=== PATIENT | male | born 1960 | race Hispanic/Latino ===

== ENCOUNTER 2016-09-14 01:27 | Inpatient (IN) | payer OTHER ==
--- NOTE | 2016-09-14 01:39 | ED PDOC ---
Arrival/HPI - General Time Seen by Provider: 09/14/16 01:31 Historian: Patient - History of Present Illness Narrative History of Present Illness (Text): 09/14/16 01:37 Ovidio Parker is a 56 year old male, whose past medical history includes pulmonary embolus, hypertension, alcohol abuse, methadone use, and thoracic aortic aneurysm, who presents to the Emergency department complaining of chest pain. Patient states he has been experiencing right-sided chest pain and shortness of breath, which has progressively worsened since yesterday. Patient states he has been feeling ill for the past week and has been unable to take his medications. Patient states he did not take his Coumadin for a few days but reports his last dose was earlier tonight. Patient denies any fever, chills, nausea, vomiting, diarrhea, urinary symptoms, back pain, neck pain, headache, dizziness, or any other complaints. Symptom Onset: Gradual Symptom Course: Unchanged Activities at Onset: Rest, Light Context: Home Past Medical History - Provider Review Nursing Documentation Reviewed: Yes - Past History Past History: No Previous - Infectious Disease Hx of Infectious Diseases: None - Tetanus Immunization Tetanus Immunization: Unknown - Cardiac Hx Cardiac Disorders: Yes Hx Hypertension: Yes - Pulmonary Hx Respiratory Disorders: No - Neurological Hx Neurological Disorder: No - HEENT Hx HEENT Disorder: No - Renal Hx Renal Disorder: No - Endocrine/Metabolic Hx Endocrine Disorders: No - Hematological/Oncological Hx Blood Disorders: Yes Other/Comment: PE, DVT - Integumentary Hx Dermatological Disorder: No - Musculoskeletal/Rheumatological Hx Falls: No Hx Unsteady Gait: Yes (b/l acl tears, amb with cane) - Gastrointestinal Hx Gastrointestinal Disorders: No - Genitourinary/Gynecological Hx Genitourinary Disorders: No - Psychiatric Hx Psychophysiologic Disorder: Yes Hx Depression: Yes Hx Substance Use: (been in methadone program for 5 years) - Past Surgical History Past Surgical History: No Previous - Surgical History Other/Comment: tonsillectomy, adenoidectomy - Suicidal Assessment Feels Threatened In Home Enviroment: No Family/Social History - Physician Review Nursing Documentation Reviewed: Yes Family/Social History: No Known Family HX Smoking Status: Never Smoked Hx Alcohol Use: Yes (pt states he has not drank alcohol in years) Hx Substance Use: (been in methadone program for 5 years) Hx Substance Use Treatment: Yes (Methadone program) Allergies/Home Meds Allergies/Adverse Reactions: Allergies No Known Allergies Allergy (Verified 09/14/16 01:45) Home Medications: Home Meds Medication Instructions Recorded Confirmed Bupropion Hydrochloride 300 mg PO DAILY 06/06/12 02/26/16 [Wellbutrin Xl] Methadone Hydrochloride [Methadone 145 mg PO DAILY 06/06/12 02/26/16 HCl Concentrate] Metoprolol Tartrate [Lopressor] 25 mg PO BID 02/26/16 02/26/16 Warfarin [Coumadin] 10 mg PO DAILY 02/26/16 02/26/16 Review of Systems - Physician Review All systems were reviewed & negative as marked: Yes - Review of Systems Constitutional: Normal. absent: Fevers Eyes: Normal ENT: Normal Respiratory: SOB Cardiovascular: Chest Pain Gastrointestinal: Normal. absent: Abdominal Pain, Diarrhea, Nausea, Vomiting Genitourinary Male: Normal. absent: Dysuria, Frequency, Hematuria, Urinary Output Changes Musculoskeletal: Normal. absent: Back Pain, Neck Pain Skin: Normal. absent: Rash Neurological: Normal. absent: Headache, Dizziness Endocrine: Normal Hemo/Lymphatic: Normal Psychiatric: Normal Physical Exam Vital Signs Reviewed: Yes Vital Signs Temp Pulse Resp BP Pulse Ox 09/14/16 03:27 77 18 123/70 96 09/14/16 02:25 22 96 09/14/16 01:27 98.5 F 85 15 116/71 100 Temperature: Afebrile Blood Pressure: Normal Pulse: Regular Respiratory Rate: Normal Appearance: Positive for: Well-Appearing, Non-Toxic, Comfortable Pain Distress: None Mental Status: Positive for: Alert and Oriented X 3 - Systems Exam Head: Present: Atraumatic, Normocephalic Pupils: Present: PERRL Extroacular Muscles: Present: EOMI Conjunctiva: Present: Normal Mouth: Present: Moist Mucous Membranes Neck: Present: Normal Range of Motion Respiratory/Chest: Present: Clear to Auscultation, Good Air Exchange. No: Respiratory Distress, Accessory Muscle Use Cardiovascular: Present: Regular Rate and Rhythm, Normal S1, S2. No: Murmurs Abdomen: Present: Normal Bowel Sounds. No: Tenderness, Distention, Peritoneal Signs Back: Present: Normal Inspection Upper Extremity: Present: Normal Inspection. No: Cyanosis, Edema Lower Extremity: Present: Normal Inspection. No: Edema Neurological: Present: GCS=15, CN II-XII Intact, Speech Normal Skin: Present: Warm, Dry, Normal Color. No: Rashes Psychiatric: Present: Alert, Oriented x 3, Normal Insight, Normal Concentration Medical Decision Making ED Course and Treatment: 09/14/16 01:37 Impression: 56 year old male complaining of chest pain and shortness of breath. Differential Diagnosis include but are not limited to: PE vs. pneumonia vs. CHF vs. ACS Plan: -- CTA Chest -- EKG -- Chest X-ray -- Labs, cardiac enzymes, BNP -- Reassess and disposition Prior Visits: Notes and results from previous visits were reviewed. Progress Notes: Reviewed EKG, NSR at [address]-segment elevations or depressions, no T-wave inversions, normal intervals. 09/14/16 03:38 Reviewed Chest X-ray, shows no acute processes. 09/14/16 03:52 Reviewed CTA Chest, shows: 1. Evaluation of the pulmonary arterial circuit demonstrates filling defects consistent with multifocal pulmonary emboli, example right main pulmonary artery, right descending pulmonary artery, as well as lobar, segmental, and/or subsegmental vessels in all right pulmonary lobes. 2. Juxtapleural groundglass opacity and consolidation in bilateral lower lobes noted. Consider infarct, atelectasis, pneumonia. 09/14/16 04:[address] Romero, who requests pt go to hospitalist service. 09/14/16 04:[address] Castro, who is aware and agrees with plan. Accepts pt in to hospitalist service. Pt will be admitted to Telemetry for PE and pneumonia. residential manager notified. - Critical Care Critical Care Minutes: 30 minutes - Lab Interpretations Lab Results: 09/14/16 01:35 09/14/16 01:35 Lab Results 09/14/16 01:35: WBC 15.4 H D, RBC 4.15, Hgb 12.1 L, Hct 36.5 L, MCV 88.0, MCH 29.2, MCHC 33.2, RDW 15.3 H, Plt Count 235, MPV 9.9 09/14/16 01:35: Sodium 136, Potassium 4.1, Chloride 97 L, Carbon Dioxide 30, Anion Gap 13, BUN 15, Creatinine 1.0, Est GFR ( Amer) > 60, Est GFR (Non- Af Amer) > 60, Random Glucose 107, Calcium 9.0, Total Bilirubin 0.6, AST 38, ALT 25, Alkaline Phosphatase 65, Lactate Dehydrogenase 351, Total Creatine Kinase 63, Troponin I < 0.01, NT-Pro-B Natriuret Pep 261, Total Protein 7.6, Albumin 4.3, Globulin 3.3, Albumin/Globulin Ratio 1.3 09/14/16 01:35: PT 11.6, INR 1.07, APTT 34.0 H I have reviewed the lab results: Yes - RAD Interpretation Narrative RAD Interpretations (Text): Chest X-ray shows no acute processes. CTA Chest shows: Pulmonary arteries: Evaluation of the pulmonary arterial circuit demonstrates filling defects consistent with multifocal pulmonary emboli, example right main pulmonary artery , right descending pulmonary artery, as well as lobar, segmental, and/or subsegmental vessels in all right pulmonary lobes. Aorta: No acute findings. No thoracic aortic aneurysm. Lungs: Juxtapleural groundglass opacity and consolidation in bilateral lower lobes noted. Pleural space: No acute findings. No significant effusion. No pneumothorax. Heart: No acute findings. No cardiomegaly. No significant pericardial effusion. No evidence of RV dysfunction. Bones/joints: No acute fracture. No dislocation. Soft tissues: No acute findings. Lymph nodes: No acute findings. No enlarged lymph nodes. IMPRESSION: 1. Evaluation of the pulmonary arterial circuit demonstrates filling defects consistent with multifocal pulmonary emboli, example right main pulmonary artery, right descending pulmonary artery, as well as lobar, segmental, and/or subsegmental vessels in all right pulmonary lobes. 2. Juxtapleural groundglass opacity and consolidation in bilateral lower lobes noted. Consider infarct, atelectasis, pneumonia. Radiology Orders: 09/14/16 CHEST PORTABLE [RAD] Stat 09/14/16 01:41 ANGIO CHEST PE PROTOCOL [CT] Stat Career Development Specialist: ED Physician, Radiologist - EKG Interpretation Interpreted by ED Physician: Yes Type: 12 lead EKG - Medication Orders Current Medication Orders: Ceftriaxone Sodium (Rocephin 1 Gram Ivpb) 1 gm in 100 mls @ 200 mls/hr IV ONCE STA PRN Reason: Protocol Stop: 09/14/16 04:56 Azithromycin (Zithromax 500mg In Ns) 500 mg in 250 mls @ 166.667 mls/hr IV STAT STA PRN Reason: Protocol Stop: 09/14/16 05:59 Discontinued Medications Heparin Sodium (Porcine) (Heparin) 8,000 units IV ONCE STA PRN Reason: Protocol Stop: 09/14/16 04:32 Iodixanol (Visipaque 320 Mg/Ml 100 Ml) Confirm Administered Dose 100 ml IV .STK- MED ONE Stop: 09/14/16 02:57 - Scribe Statement The provider has reviewed the documentation as recorded by the Scribramírez Campuzano All medical record entries made by the Shahzadibramírez were at my direction and personally dictated by me. I have reviewed the chart and agree that the record accurately reflects my personal performance of the history, physical exam, medical decision making, and the department course for this patient. I have also personally directed, reviewed, and agree with the discharge instructions and disposition. Disposition/Present on Arrival - Present on Arrival Any Indicators Present on Arrival: No History of DVT/PE: Yes History of Uncontrolled Diabetes: No Urinary Catheter: No History of Decub. Ulcer: No History Surgical Site Infection Following: None - Disposition Have Diagnosis and Disposition been Completed?: Yes Diagnosis: Pulmonary embolism, Pneumonia Disposition: HOSPITALIZED Disposition Time: 04:43 Patient Plan: Admission Condition: STABLE
[2016-09-14 01:55] LABS: HEMATOCRIT 36.5 % (42.0-52.0); MEAN CORPUSCULAR HEMOGLOBIN 29.2 pg (25.0-35.0); MEAN CORPUSCULAR HGB CONC 33.2 g/dl (31.0-37.0); MEAN PLATELET VOLUME 9.9 fl (7.0-11.0); RED CELL DISTRIBUTION WIDTH 15.3 % (11.5-14.5); WHITE BLOOD COUNT 15.4 10^3/ul (4.5-11.0)
[2016-09-14 02:00] LABS: ALB/GLOB RATIO 1.3 (1.1-1.8); ALKALINE PHOSPHATASE 65 U/L (38-133); ALT/SGPT 25 U/L (7-56); AST/SGOT 38 U/L (15-59); BILIRUBIN,TOTAL 0.6 mg/dL (0.2-1.3); BLOOD UREA NITROGEN 15 mg/dL (7-21); CARBON DIOXIDE 30 mmol/L (21-33); CHLORIDE 97 mmol/L (98-107); GFR AFRICAN-AMERICAN > 60; GLUCOSE,RANDOM 107 mg/dL (70-110); INR 1.07 (0.93-1.08); POTASSIUM 4.1 mmol/L (3.6-5.0); SODIUM 136 mmol/L (132-148); TOTAL PROTEIN 7.6 g/dL (5.8-8.3)
[2016-09-14 02:24] LABS: TROPONIN I < 0.01 ng/mL
[2016-09-14] MEDS ORDERED: Iodixanol 320 MG/ML 100 ML BOTTLE IV ONE (02:56)
[2016-09-14] MEDS ORDERED: cefTRIAXone 1 gm 1 GM/100 ML BAG IV STA (04:27)
[2016-09-14] MEDS ORDERED: Azithromycin 500MG/NS 250ml 500 MG/250 ML BAG IV STA (04:30)
[2016-09-14] MEDS ORDERED: Heparin25000 units/250ml 1/2NS 25,000 UNITS/250 ML BAG IV PRN ×2 (04:52→05:33)
[2016-09-14] MEDS: Heparin25000 units/250ml 1/2NS 25,000 UNITS/250 ML BAG IV PRN ×2 (05:43→20:16)
--- NOTE | 2016-09-14 06:07 | CP.PCM.HP ---
History of Present Illness - History of Present Illness History of Present Illness: This 56 year old white male was admitted for right sided chest pain, sob, little nausea which all began yesterday.\ Chest pain was moderate , more on deep breathing, no radiation, shortness of breathe was non exertional ,no vomiting, no seating, palpitation , back pain, headache, dizziness, fever, chills.Has history of recurrent pulmonary embolisms.States that he took his 6 mg a day dose of coumadin for past 2 days but did not take it 5-6 days immediately preceding that. Had no other complaints. ALLERGY:No known drug allergies. PMH:Multiple times pulmonary embolism. HTN. Methadone dependence. Depression. History of thoracic aortic aneurism. Tobacco abuse history. Alcohol abuse history. History of cocaine and opiates use. PAST SURGICAL HISTORY:Denies. FH:Rosita grand father had lung cancer. SOCIAL HISTORY:Alcohol abuse 20 years ago-moderate amount. Has been on methadone for 6 years.Takes 140 mg methadone per day. Used pain killers in the past . Used cocaine year ago. HOME MEDICATIONS: Home Meds Medication Instructions Recorded Confirmed Bupropion Hydrochloride 300 mg PO DAILY 06/06/12 02/26/16 [Wellbutrin Xl] Methadone Hydrochloride [Methadone 145 mg PO DAILY 06/06/12 02/26/16 HCl Concentrate] Metoprolol Tartrate [Lopressor] 25 mg PO BID 02/26/16 02/26/16 Warfarin [Coumadin] 10 mg PO DAILY 02/26/16 02/26/16 PMD: ROS: Right ear deafness,right mastoid surgery x2 at age 7-8 year. Tonsillectomy. Adenoidectomy. Goes to [facility] in [facility]. Present on Admission - Present on Admission Any Indicators Present on Admission: Yes History of DVT/PE: Yes History of Uncontrolled Diabetes: No Urinary Catheter: No Decubitus Ulcer Present: No History Surgical Site Infection Following: None Review of Systems - Review of Systems All systems: reviewed and no additional remarkable complaints except (As mentioned in HPI.) Past Patient History - Infectious Disease Hx of Infectious Diseases: None - Tetanus Immunizations Tetanus Immunization: Unknown - Past Medical History & Family History Past Medical History?: Yes Pertinent Family History: See HPI. - Past Social History Smoking Status: Never Smoked Alcohol: Other (See HPI.) Drugs: Other (see HPI.) - CARDIAC Hx Cardiac Disorders: Yes Hx Hypertension: Yes - PULMONARY Hx Respiratory Disorders: Yes Other/Comment: Pulmonary embolism -multiple times. - NEUROLOGICAL Hx Neurological Disorder: No - HEENT Hx HEENT Problems: No - RENAL Hx Chronic Kidney Disease: No - ENDOCRINE/METABOLIC Hx Endocrine Disorders: No - HEMATOLOGICAL/ONCOLOGICAL Hx Blood Disorders: Yes Other/Comment: PE, DVT - INTEGUMENTARY Hx Dermatological Problems: No - MUSCULOSKELETAL/RHEUMATOLOGICAL Hx Falls: No Hx Unsteady Gait: Yes (b/l acl tears, amb with cane) - GASTROINTESTINAL Hx Gastrointestinal Disorders: No - GENITOURINARY/GYNECOLOGICAL Hx Genitourinary Disorders: No - PSYCHIATRIC Hx Psychophysiologic Disorder: Yes Hx Depression: Yes Hx Substance Use: (been in methadone program for 5 years) - SURGICAL HISTORY Other/Comment: tonsillectomy, adenoidectomy - ANESTHESIA Hx Anesthesia: Yes Hx Anesthesia Reactions: No Hx Malignant Hyperthermia: No Meds Allergies/Adverse Reactions: Allergies Allergy/AdvReac Type Severity Reaction Status Date / Time No Known Allergies Allergy Verified 09/14/16 01:45 Physical Exam - Constitutional Appears: Well, No Acute Distress - Head Exam Head Exam: ATRAUMATIC, NORMAL INSPECTION, NORMOCEPHALIC - Eye Exam Eye Exam: Normal appearance - ENT Exam ENT Exam: Mucous Membranes Moist, Normal External Ear Exam - Neck Exam Neck exam: Positive for: Normal Inspection. Negative for: Tenderness, Thyromegaly - Respiratory Exam Respiratory Exam: Clear to Auscultation Bilateral, NORMAL BREATHING PATTERN. absent: Accessory Muscle Use, Chest Wall Tenderness, Rales, Rhonchi, Wheezes, Respiratory Distress, Stridor - Cardiovascular Exam Cardiovascular Exam: REGULAR RHYTHM. absent: JVD - GI/Abdominal Exam GI & Abdominal Exam: Normal Bowel Sounds, Soft. absent: Tenderness - Rectal Exam Rectal Exam: Deferred - Extremities Exam Extremities exam: Positive for: pedal edema. Negative for: tenderness Additional comments: Right leg edema. - Back Exam Back exam: NORMAL INSPECTION - Neurological Exam Neurological exam: Alert, CN II-XII Intact, Oriented x3 - Psychiatric Exam Psychiatric exam: Normal Affect, Normal Mood - Skin Skin Exam: Normal Color, Warm Results - Vital Signs Recent Vital Signs: Last Vital Signs Temp 98.5 F 09/14/16 01:27 Pulse 77 09/14/16 03:27 Resp 18 09/14/16 03:27 BP 123/70 06/05/17 03:27 Pulse Ox 96 09/14/16 03:27 - Labs Result Diagrams: 09/14/16 11:50 09/14/16 07:25 - EKG Data EKG Interpreted by: Myself - Impressions Impression: NSR - Imaging and Cardiology CT scan - chest Status: Report reviewed by me (Multiple pe right side.) Assessment & Plan - Assessment and Plan (Free Text) Assessment: Pleuritic chest pain. Dyspnea. Right sided pulmonary embolism. HTN. Depression. Methadone dependence. Leukocytosis. Borderline anemia. Right ear deafness. Obesity. Plan: Admitted to telemetry. Heart health ,low sodium diet. IV heaprin. Daily coag profile. CBC, CMP in AM. Continue home medications. Oxygen. GI prophylaxis. Analgesic. Antipyretic prn. - Date & Time Date: 09/14/16 Time: 16:35
--- NOTE | 2016-09-14 06:28 | CP.PCM.HP ---
History of Present Illness - History of Present Illness History of Present Illness: draft Past Patient History - Infectious Disease Hx of Infectious Diseases: None - Tetanus Immunizations Tetanus Immunization: Unknown - Past Social History Smoking Status: Never Smoked - CARDIAC Hx Cardiac Disorders: Yes Hx Hypertension: Yes - PULMONARY Hx Respiratory Disorders: No - NEUROLOGICAL Hx Neurological Disorder: No - HEENT Hx HEENT Problems: No - RENAL Hx Chronic Kidney Disease: No - ENDOCRINE/METABOLIC Hx Endocrine Disorders: No - HEMATOLOGICAL/ONCOLOGICAL Hx Blood Disorders: Yes Other/Comment: PE, DVT - INTEGUMENTARY Hx Dermatological Problems: No - MUSCULOSKELETAL/RHEUMATOLOGICAL Hx Falls: No Hx Unsteady Gait: Yes (b/l acl tears, amb with cane) - GASTROINTESTINAL Hx Gastrointestinal Disorders: No - GENITOURINARY/GYNECOLOGICAL Hx Genitourinary Disorders: No - PSYCHIATRIC Hx Psychophysiologic Disorder: Yes Hx Depression: Yes Hx Substance Use: (been in methadone program for 5 years) - SURGICAL HISTORY Other/Comment: tonsillectomy, adenoidectomy - ANESTHESIA Hx Anesthesia: Yes Hx Anesthesia Reactions: No Hx Malignant Hyperthermia: No Meds Allergies/Adverse Reactions: Allergies Allergy/AdvReac Type Severity Reaction Status Date / Time No Known Allergies Allergy Verified 09/14/16 01:45 Results - Vital Signs Recent Vital Signs: Last Vital Signs Temp 98.5 F 09/14/16 01:27 Pulse 77 09/14/16 03:27 Resp 18 09/14/16 03:27 BP 123/70 09/14/16 03:27 Pulse Ox 96 09/14/16 03:27 - Labs Result Diagrams: 09/14/16 01:35 09/14/16 01:35
[2016-09-14 08:04] LABS: ALB/GLOB RATIO 1.2 (1.1-1.8); ALKALINE PHOSPHATASE 62 U/L (38-133); ALT/SGPT 29 U/L (7-56); AST/SGOT 26 U/L (15-59); BILIRUBIN,TOTAL 0.7 mg/dL (0.2-1.3); BLOOD UREA NITROGEN 16 mg/dL (7-21); CALCIUM 8.8 mg/dL (8.4-10.5); CARBON DIOXIDE 28 mmol/L (21-33); CHLORIDE 99 mmol/L (98-107); GFR AFRICAN-AMERICAN > 60; GLUCOSE,RANDOM 100 mg/dL (70-110); POTASSIUM 4.8 mmol/L (3.6-5.0); SODIUM 137 mmol/L (132-148); TOTAL PROTEIN 7.5 g/dL (5.8-8.3)
[2016-09-14 08:07] LABS: TROPONIN I < 0.01 ng/mL
--- NOTE | 2016-09-14 08:25 | CT ---
PROCEDURE: CT Chest with contrast (Pulmonary Angiogram) HISTORY: sob COMPARISON: None available. TECHNIQUE: Axial computed tomography images were obtained of the chest in the pulmonary arterial phase of enhancement. Coronal and sagittal reformatted images were created and reviewed. Intravenous contrast dose: 100 mL Visipaque Radiation dose: Total exam DLP = 690.93 mGy-cm. This CT exam was performed using one or more of the following dose reduction techniques: Automated exposure control, adjustment of the mA and/or kV according to patient size, and/or use of iterative reconstruction technique. FINDINGS: PULMONARY ARTERIES: There are linear filling defects in the right distal pulmonary artery and upper lobe artery, and large filling defects in the middle and lower lobe segment and subset pulmonary arteries. AORTA: There is aneurysm of the ascending aorta measuring 4.8 x 5.0 cm. LUNGS: There is a 4 mm calcified nodule in the right middle lobe. There is multifocal airspace disease in both lower lobes. PLEURAL SPACES: Unremarkable. No effusion or pneumothorax. HEART: Unremarkable. No cardiomegaly. No significant pericardial effusion. LYMPH NODES: Subcentimeter mediastinal lymph nodes are likely reactive in etiology. BONES, CHEST WALL: Diffuse bone demineralization and multilevel degenerative disc disease. No fracture or destructive lesion OTHER FINDINGS: Unremarkable. IMPRESSION: 1. Acute pulmonary embolism in the right distal main pulmonary artery, right upper lobe artery, middle and lower lobe segmental and subsegmental branches. 2. Multifocal airspace disease in both lower lobes may represent atelectasis or pneumonia. Pulmonary infarction is also a consideration in the right lower lobe. A preliminary report was provided by [facility].
--- NOTE | 2016-09-14 09:12 | RAD ---
HISTORY: Shortness of breath COMPARISON: No prior. FINDINGS: LUNGS: The lungs are clear. PLEURA: No significant pleural effusion identified, no pneumothorax apparent. CARDIOVASCULAR: Normal. OSSEOUS STRUCTURES: No significant abnormalities. VISUALIZED UPPER ABDOMEN: Normal. OTHER FINDINGS: None. IMPRESSION: No active pulmonary disease.
[2016-09-14 09:17] VITALS: BMI 31.2
[2016-09-14] MEDS: cefTRIAXone 1 gm 1 GM/100 ML BAG IVPB SCH (09:17)
[2016-09-14] MEDS: Azithromycin 250 MG in Sodium Chloride 0.9% 250 ML IVPB SCH (09:17)
[2016-09-14 12:05] LABS: ADD MANUAL DIFF? NO
[2016-09-14 12:11] LABS: BASO # 0.03 K/mm3 (0.0-2.0); BASO % 0.2 % (0.0-3.0); EOS # 0.1 (0.0-0.7); EOS % 0.5 % (1.5-5.0); GRAN # 8.07 (1.4-6.5); GRAN % 61.2 % (50.0-68.0); LYMPH # 3.4 (1.2-3.4); LYMPH % 25.5 % (22.0-35.0); MEAN CORPUSCULAR HEMOGLOBIN 28.8 pg (25.0-35.0); MEAN PLATELET VOLUME 10.1 fl (7.0-11.0); MONO # 1.7 (0.1-0.6); MONO % 12.6 % (1.0-6.0); PLATELET COUNT 190 10^3/uL (120.0-450.0); RED CELL DISTRIBUTION WIDTH 15.5 % (11.5-14.5); WHITE BLOOD COUNT 13.2 10^3/ul (4.5-11.0)
[2016-09-14 12:35] LABS: TROPONIN I 0.01 ng/mL
[2016-09-14 12:41] LABS: INR 1.19 (0.93-1.08)
[2016-09-14 13:13] LABS: PARTIAL THROMBOPLASTIN TIME > 180.0 Seconds (23.7-30.8)
--- NOTE | 2016-09-14 13:16 | CON ---
DATE: 09/14/2016 REASON FOR CONSULTATION: Acute pulmonary embolism. HISTORY OF PRESENT ILLNESS: The patient is a 56-year-old male who has history of ETOH abuse and is o n methadone, has a history of pulmonary embolus diagnosed in February of last year and he was placed on Coumadin therapy at that time. The patient presents because of right-sided chest pain as well as shortness of breath. The patient has been experiencing abdominal pain, nausea, and vomiting a few da ys prior to that. The patient was found to have an acute pulmonary embolism in the right distal main pulmonary artery, right upper lobe, middle and lower lobe segmental and subsegmental branches. Numb er 2, multifocal airspace disease in both lower lobes, may represent atelectasis or pneumonia, pulmon tommy infarction ____ in the right lower lobe. The above findings were found on a CT angio of the [facility] t. The patient denies any leg pain at this time or leg swelling. He did report right thigh pain ear lier. MEDICATIONS: Home medications include Coumadin according to the patient, but he says a variable dose . PAST MEDICAL HISTORY: History of aortic aneurysm that the patient was told measured less than 5 cm, but no cardiac catheterization was performed. PHYSICAL EXAMINATION: GENERAL: The patient is a middle-aged male who does not appear to be in any distress. VITAL SIGNS: Blood pressure 105/71, heart rate 70, temperature 98, respiration 20. HEENT: Normocephalic. NECK: No JVD. CHEST: Diminished breath sounds over the right base. HEART: S1, S2 regular. ABDOMEN: Soft. EXTREMITIES: No edema, no calf tenderness. LABORATORIES: Hemoglobin and hematocrit 12.1 and 36.5. White count and platelet count are 15.4 and 235,000. INR is 1.07. PTT 34. Today's SMA-7 within normal limit. Two sets of troponins are negati ve. EKG revealed normal sinus rhythm. ASSESSMENT: 1. Acute pulmonary embolism. 2. Right lower lobe pneumonia versus infarction. 3. History of ethyl alcohol abuse. RECOMMENDATIONS: Continue current intravenous heparin in a therapeutic regimen for pulmonary embolis m. Continue IV Zithromax at 250 mg daily. Continue Rocephin at 1 gram daily. Obtain a portable ech ocardiograph study as well as venous Doppler of the lower extremity. Obtain urine for drug screen an d obtain workup for hypercoagulable state including lupus anticoagulant, antiphospholipid antibody, p rotein C and S deficiency as well as factor V deficiency. Cosmo Palencia MD cc: [id number] TT: 09/14/2016 13:15:47 Confirmation # [id number] Dictation # [id number]
--- NOTE | 2016-09-14 14:49 | CARD ---
APPROVED REPORT EKG Measurement Heart [id number] ME 194P [id number] <Conclusion> Normal sinus rhythm Normal ECG
--- NOTE | 2016-09-14 16:35 | CARD ---
APPROVED REPORT EXAM: Two-dimensional and M-mode echocardiogram with Doppler and color Doppler. INDICATION Pulmonary Embolism 2D DIMENSIONS Left Atrium (2D)4.1 (1.6-4.0cm)IVSd1.4 (0.7-1.1cm) LVDd4.7 (3.9-5.9cm)PWd1.3 (0.7-1.1cm) LVDs3.3 (2.5-4.0cm)FS (%) 29.2 % LVEF (%)56.1 (>50%) M-Mode DIMENSIONS Aortic Root4.00 (2.2-3.7cm)Aortic Cusp Exc.2.20 (1.5-2.0cm) Aortic Valve AoV Peak Boqlprqj988.0cm/Evelin Peak GR.12mmHg Mitral Valve E/A ratio0.0 TDI E/Lateral E'0.0E/Medial E'0.0 Tricuspid Valve TR Peak [id number] [id number] Peak Gr.17mmHg [id number] LEFT VENTRICLE The left ventricle is normal size. There is mild concentric left ventricular hypertrophy. The left ventricular ejection fraction is within the normal range. Mild septal hypokinesis Transmitral Doppler flow pattern is Grade I-abnormal relaxation pattern. RIGHT VENTRICLE The right ventricle is normal size. There is normal right ventricular wall thickness. RV Systolic function is mildly reduced. ATRIA The left atrium is borderline dilated. The right atrium size is normal. AORTIC VALVE The aortic valve is normal in structure. There is mild aortic regurgitation. TRICUSPID VALVE There is no pulmonary hypertension. GREAT VESSELS The aortic root is mildly to moderately enlarged. <Conclusion> The left ventricle is normal size. There is mild concentric left ventricular hypertrophy. The left ventricular ejection fraction is within the normal range. Mild septal hypokinesis Transmitral Doppler flow pattern is Grade I-abnormal relaxation pattern. RV Systolic function is mildly reduced. The aortic root is mildly to moderately enlarged. There is mild aortic regurgitation. There is no pulmonary hypertension.
--- NOTE | 2016-09-14 18:46 | US ---
HISTORY: Leg pain and swelling. Evaluate for DVT PHYSICIAN(S): Dipak Rodriguez MD. TECHNIQUE: Duplex sonography and color-flow Doppler with graded compression were used to evaluate the deep venous systems of both lower extremities. FINDINGS: Hypoechoic occlusive acute thrombus is noted in the right popliteal vein and visualized right tibial veins. A right femoral vein and right common femoral vein are patent and compressible. There is no sonographic evidence for deep venous thrombosis the visualized segments of left lower extremity. IMPRESSION: Acute occlusive thrombus in the right popliteal and tibial veins.
--- NOTE | 2016-09-14 20:08 | CP.PCM.CON ---
History of Present Illness - History of Present Illness History of Present Illness: Hematology Consult Referred by Dr. Arvizu for h/o recurrent PE HPI- Mr Parker is 56 y/o M with h/o HTN, depression, substance abuse (on Methadone now). 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 Review of his records did not show any identifiable cause of any hypercoagulable work up in past. Also, he had issues with maintaining his INR in therapeutic range. Denies any bleeding while on coumadin. He was admitted now with pleuritic chest pain. CT Chest again showed multiple PE. He was started on IV heparin. He still has chest pain which is overall stable right now. He is saturating 98% on 2 L oxygen by nasal canula. His vitals have been stable. Denies abdominal pain or altered bowel movements, blood in stools or urinary complaints. His appetite is good and denies any weight loss. Denies fever, chills. Family and Social history reviewed. Review of Systems - Review of Systems All systems: reviewed and no additional remarkable complaints except Review of Systems: as in HPI Past Patient History - Infectious Disease Hx of Infectious Diseases: None - Tetanus Immunizations Tetanus Immunization: Unknown - Past Medical History & Family History Past Medical History?: Yes - Past Social History Smoking Status: Never Smoked Alcohol: Other (See HPI.) Drugs: Other (see HPI.) - CARDIAC Hx Cardiac Disorders: Yes Hx Hypertension: Yes - PULMONARY Hx Respiratory Disorders: Yes Other/Comment: Pulmonary embolism -multiple times. - NEUROLOGICAL Hx Neurological Disorder: No - HEENT Hx HEENT Problems: No - RENAL Hx Chronic Kidney Disease: No - ENDOCRINE/METABOLIC Hx Endocrine Disorders: No - HEMATOLOGICAL/ONCOLOGICAL Hx Blood Disorders: Yes Other/Comment: PE, DVT - INTEGUMENTARY Hx Dermatological Problems: No - MUSCULOSKELETAL/RHEUMATOLOGICAL Hx Falls: No Hx Unsteady Gait: Yes (b/l acl tears, amb with cane) - GASTROINTESTINAL Hx Gastrointestinal Disorders: No - GENITOURINARY/GYNECOLOGICAL Hx Genitourinary Disorders: No - PSYCHIATRIC Hx Psychophysiologic Disorder: Yes Hx Depression: Yes Hx Substance Use: (been in methadone program for 5 years) - SURGICAL HISTORY Other/Comment: tonsillectomy, adenoidectomy - ANESTHESIA Hx Anesthesia: Yes Hx Anesthesia Reactions: No Hx Malignant Hyperthermia: No Meds Allergies/Adverse Reactions: Allergies Allergy/AdvReac Type Severity Reaction Status Date / Time No Known Allergies Allergy Verified 09/14/16 01:45 - Medications Medications: Current Medications Acetaminophen (Tylenol 325mg Tab) 650 mg PO Q6 PRN PRN Reason: Temp>100.4, aches Last Admin: 09/14/16 10:35 Dose: 650 mg Famotidine (Pepcid) 20 mg PO DAILY [facility] Last Admin: 09/14/16 10:03 Dose: 20 mg Ceftriaxone Sodium (Rocephin 1 Gram Ivpb) 1 gm in 100 mls @ 100 mls/hr IVPB DAILY [facility] PRN Reason: Protocol Last Admin: 09/14/16 09:17 Dose: Not Given Azithromycin 250 mg/ Sodium (Chloride) 250 mls @ 167 mls/hr IVPB DAILY [facility] PRN Reason: Protocol Last Admin: 09/14/16 09:17 Dose: Not Given Heparin Sodium/Sodium Chloride (Heparin 32362 Units/250ml 1/2 Normal Saline) 25 ,000 units in 250 mls @ 19.464 mls/hr IV .[id number] PRN; Protocol; 18 UNITS/KG/HR PRN Reason: ADJUST RATE PER MD ORDER Last Titration: 09/14/16 14:27 Dose: 14.79 units/kg/hr, 16 mls/hr Ibuprofen (Motrin Tab) 400 mg PO Q6 PRN PRN Reason: Pain, moderate (4-7) Last Admin: 09/14/16 15:05 Dose: 400 mg Nitroglycerin (Nitrostat Sl Tab) 0.4 mg SL Q5M PRN PRN Reason: chest pain Physical Exam - Head Exam Head Exam: ATRAUMATIC, NORMAL INSPECTION - Eye Exam Eye Exam: EOMI, PERRL - ENT Exam ENT Exam: Mucous Membranes Moist - Neck Exam Neck exam: Negative for: Lymphadenopathy - Respiratory Exam Respiratory Exam: Clear to Auscultation Bilateral - Cardiovascular Exam Cardiovascular Exam: REGULAR RHYTHM - GI/Abdominal Exam GI & Abdominal Exam: Normal Bowel Sounds, Soft. absent: Organomegaly, Tenderness - Extremities Exam Extremities exam: Negative for: pedal edema - Neurological Exam Neurological exam: Alert, Oriented x3 Results - Vital Signs Recent Vital Signs: Last Vital Signs Temp 98 F 09/14/16 08:57 Pulse 69 09/14/16 17:54 Resp 20 09/14/16 08:57 BP 105/71 06/05/17 08:57 Pulse Ox 97 09/14/16 07:40 - Labs Result Diagrams: 09/14/16 11:50 09/14/16 07:25 Labs: Laboratory Results - last 24 hr 09/14/16 09/14/16 09/14/16 07:25 11:30 11:50 WBC 13.2 H RBC 3.89 Hgb 11.2 L Hct 35.0 L MCV 90.0 MCH 28.8 MCHC 32.0 RDW 15.5 H Plt Count 190 MPV 10.1 Gran % 61.2 Lymph % (Auto) 25.5 Mccreary % (Auto) 12.6 H Eos % (Auto) 0.5 L Baso % (Auto) 0.2 Gran # 8.07 H Lymph # 3.4 Mccreary # 1.7 H Eos # 0.1 Baso # 0.03 PT INR APTT Sodium 137 Potassium 4.8 Chloride 99 Carbon Dioxide 28 Anion Gap 15 BUN 16 Creatinine 1.0 Est GFR ( Amer) > 60 Est GFR (Non-Af Amer) > 60 Random Glucose 100 Calcium 8.8 Total Bilirubin 0.7 AST 26 ALT 29 Alkaline Phosphatase 62 Lactate Dehydrogenase 375 Total Creatine Kinase 54 Troponin I < 0.01 Total Protein 7.5 Albumin 4.1 Globulin 3.3 Albumin/Globulin Ratio 1.2 Urine Opiates Screen Negative Urine Methadone Screen Positive H Ur Barbiturates Screen Negative Ur Phencyclidine Scrn Negative Ur Amphetamines Screen Negative U Benzodiazepines Scrn Negative U Oth Cocaine Metabols Negative U Cannabinoids Screen Negative 09/14/16 09/14/16 09/14/16 11:50 11:50 18:47 WBC RBC Hgb Hct MCV MCH MCHC RDW Plt Count MPV Gran % Lymph % (Auto) Mccreary % (Auto) Eos % (Auto) Baso % (Auto) Gran # Lymph # Mccreary # Eos # Baso # PT 12.9 H INR 1.19 H APTT > 180.0 H* 89.1 H* Sodium Potassium Chloride Carbon Dioxide Anion Gap BUN Creatinine Est GFR ( Amer) Est GFR (Non-Af Amer) Random Glucose Calcium Total Bilirubin AST ALT Alkaline Phosphatase Lactate Dehydrogenase 331 L Total Creatine Kinase 58 Troponin I 0.01 Total Protein Albumin Globulin Albumin/Globulin Ratio Urine Opiates Screen Urine Methadone Screen Ur Barbiturates Screen Ur Phencyclidine Scrn Ur Amphetamines Screen U Benzodiazepines Scrn U Oth Cocaine Metabols U Cannabinoids Screen Assessment & Plan - Assessment and Plan (Free Text) Assessment: h/o Recurrent PE -No provoking factor, though his INR was poorly controlled on coumadin in past. Continue IV Heparin for now. We had a long discussion on different anticoagulant options available and their pros and cons. Will recommend starting Eliquis 10 mg BID once stable. He should continue on 10 mg BID dose for 7 days followed by 5 mg BID. We discussed the risks of bleeding including severe bleeding while on Eliquis. He also has mild normocytic anemia. Will recommend checking iron levels, B12 and folate. I recommended age appropriate cancer screening. He should follow up with GI outpatient to schedule screening colonoscopy. Will send PSA. Check other hypercoagulable work up including antiphophoslipid antibodies, Factor V leiden, Prothrombin gene mutation. Some of the other levels can be affected by active VTE and can be checked later if needed. It may not change his management at this stage though which is life long anticoagulation. We discussed above plan and all his questions were answered. Thank you for the consult Bandar Butcher - Date & Time Date: 09/14/16 Time: 17:08
[2016-09-14 20:48] LABS: TROPONIN I < 0.01 ng/mL
[2016-09-14 20:52] LABS: IRON 19 ug/dL (45-180)
[2016-09-15 07:10] LABS: ADD MANUAL DIFF? NO
[2016-09-15 07:16] LABS: BASO # 0.03 K/mm3 (0.0-2.0); BASO % 0.2 % (0.0-3.0); EOS # 0.1 (0.0-0.7); EOS % 0.6 % (1.5-5.0); GRAN # 10.22 (1.4-6.5); GRAN % 75.6 % (50.0-68.0); HEMATOCRIT 34.5 % (42.0-52.0); LYMPH # 1.9 (1.2-3.4); LYMPH % 14.1 % (22.0-35.0); MEAN CELL VOLUME 88.9 fL (80.0-105.0); MEAN CORPUSCULAR HEMOGLOBIN 28.6 pg (25.0-35.0); MEAN CORPUSCULAR HGB CONC 32.2 g/dl (31.0-37.0); MEAN PLATELET VOLUME 10.1 fl (7.0-11.0); MONO # 1.3 (0.1-0.6); MONO % 9.5 % (1.0-6.0); PLATELET COUNT 198 10^3/uL (120.0-450.0); RED CELL DISTRIBUTION WIDTH 15.3 % (11.5-14.5); WHITE BLOOD COUNT 13.5 10^3/ul (4.5-11.0)
[2016-09-15 07:34] LABS: ALB/GLOB RATIO 1.1 (1.1-1.8); ALKALINE PHOSPHATASE 74 U/L (38-133); ALT/SGPT 27 U/L (7-56); AST/SGOT 20 U/L (15-59); BILIRUBIN,TOTAL 0.6 mg/dL (0.2-1.3); BLOOD UREA NITROGEN 14 mg/dL (7-21); CARBON DIOXIDE 27 mmol/L (21-33); CHLORIDE 101 mmol/L (98-107); GFR AFRICAN-AMERICAN > 60; GLUCOSE,RANDOM 101 mg/dL (70-110); MAGNESIUM 1.8 mg/dL (1.7-2.2); PHOSPHOROUS 2.8 mg/dL (2.5-4.5); POTASSIUM 4.3 mmol/L (3.6-5.0); SODIUM 135 mmol/L (132-148); TOTAL PROTEIN 7.3 g/dL (5.8-8.3)
[2016-09-15] MEDS: cefTRIAXone 1 gm 1 GM/100 ML BAG IVPB SCH (09:37)
[2016-09-15] MEDS ORDERED: METHADONE 150 MG PO SCH ×2 (10:00)
[2016-09-15] MEDS: Azithromycin 250 MG in Sodium Chloride 0.9% 250 ML IVPB SCH (10:45)
[2016-09-15 12:15] LABS: FOLATE 6.3 ng/mL
[2016-09-15] MEDS: Heparin25000 units/250ml 1/2NS 25,000 UNITS/250 ML BAG IV PRN (12:25)
--- NOTE | 2016-09-15 13:28 | CP.PCM.PN ---
<Micah Peoples - Last Filed: 09/15/16 13:28> Subjective - Date & Time of Evaluation Date of Evaluation: 09/15/16 Time of Evaluation: 13:25 - Subjective Subjective: Medicine progress note. Attending: Dr. Paula Pt seen and examined at bedside. No acute distress. No events overnight. Pt still complaining of some rib pain. Fever this morning of 101.3, will get id consult and repeat ua/urine culture. No vomiting, diarrhea. Objective - Vital Signs/Intake and Output Vital Signs (last 24 hours): Temp Pulse Resp BP Pulse Ox 100.6 F H 101 H 20 112/54 L 96 09/15/16 12:00 09/15/16 12:00 09/15/16 12:00 09/15/16 12:00 09/15/16 06:00 Intake and Output: 09/15/16 09/15/16 06:59 18:59 Intake Total 340 440 Output Total 1400 Balance -1060 440 - Medications Medications: Current Medications Acetaminophen (Tylenol 325mg Tab) 650 mg PO Q6 PRN PRN Reason: Temp>100.4, aches Last Admin: 09/15/16 11:38 Dose: 650 mg Famotidine (Pepcid) 20 mg PO DAILY [facility] Last Admin: 09/15/16 09:37 Dose: 20 mg Ceftriaxone Sodium (Rocephin 1 Gram Ivpb) 1 gm in 100 mls @ 100 mls/hr IVPB DAILY [facility] PRN Reason: Protocol Last Admin: 09/15/16 09:37 Dose: 100 mls/hr Azithromycin 250 mg/ Sodium (Chloride) 250 mls @ 167 mls/hr IVPB DAILY [facility] PRN Reason: Protocol Last Admin: 09/15/16 10:45 Dose: 167 mls/hr Heparin Sodium/Sodium Chloride (Heparin 65822 Units/250ml 1/2 Normal Saline) 25 ,000 units in 250 mls @ 19.464 mls/hr IV .[id number] PRN; Protocol; 18 UNITS/KG/HR PRN Reason: ADJUST RATE PER MD ORDER Last Admin: 09/15/16 12:25 Dose: 13.5 units/kg/hr, 14.598 mls/hr Ibuprofen (Motrin Tab) 400 mg PO Q6 PRN PRN Reason: Pain, moderate (4-7) Last Admin: 09/14/16 15:05 Dose: 400 mg Methadone HCl (Methadone) 5 mg PO DAILY [facility] Methadone HCl (Methadone) 140 mg PO DAILY [facility] Nitroglycerin (Nitrostat Sl Tab) 0.4 mg SL Q5M PRN PRN Reason: chest pain - Labs Labs: 09/15/16 06:45 09/15/16 06:45 PT 12.9 Seconds (9.9-11.8) H 09/14/16 11:50 INR 1.19 (0.93-1.08) H 09/14/16 11:50 APTT 71.6 Seconds (23.7-30.8) H* 09/15/16 08:30 - Constitutional Appears: Non-toxic, No Acute Distress - Head Exam Head Exam: ATRAUMATIC, NORMAL INSPECTION, NORMOCEPHALIC - Eye Exam Eye Exam: EOMI - ENT Exam ENT Exam: Mucous Membranes Moist - Neck Exam Neck Exam: Full ROM, Normal Inspection - Respiratory Exam Respiratory Exam: NORMAL BREATHING PATTERN. absent: Respiratory Distress - Cardiovascular Exam Cardiovascular Exam: +S1, +S2 - GI/Abdominal Exam GI & Abdominal Exam: Soft, Normal Bowel Sounds. absent: Tenderness - Extremities Exam Extremities Exam: Full ROM, Normal Inspection - Neurological Exam Neurological Exam: Alert, Awake, Oriented x3 - Psychiatric Exam Psychiatric exam: Normal Affect, Normal Mood - Skin Skin Exam: Dry, Intact, Normal Color, Warm Assessment and Plan - Assessment and Plan (Free Text) Assessment: This is a 56 yo male with past medical hx of PE, opioid abuse, htn, depression presenting with PE 1. Pulmonary embolism -continue tylenol for fevers -continue heparin drip -Dr. Butcher consult. recs appreciated -hypercoag workup in progress -will start eliquis today -Dopplers show acute thrombus in right popliteal/tibial veins 2. Hx of HTN -continue to monitor 3. hx of opioid abuse -will restart home methadone today 4. Multifocal airspace disease, lower lobes -pt is febrile this morning -tylenol for fevers -ibuprofen for pain -ID consult. recs appreciated -will repeat ua/urine culture -azithromycin 250 mg daily -ceftriaxone 1 g daily 5. Anemia -iron studies pending 6. GI/DVT ppx -pepcid daily -heparin drip discussed with Dr. Paula <Flori Paula - Last Filed: 09/16/16 16:42> Objective - Vital Signs/Intake and Output Vital Signs (last 24 hours): Temp Pulse Resp BP Pulse Ox 98.7 F 95 H 20 142/87 96 09/16/16 11:51 09/16/16 11:51 09/16/16 11:51 09/16/16 11:51 09/15/16 06:00 Intake and Output: 09/16/16 09/16/16 06:59 18:59 Intake Total 1340 Output Total 500 Balance 840 - Medications Medications: Current Medications Acetaminophen (Tylenol 325mg Tab) 650 mg PO Q6 PRN PRN Reason: Temp>100.4, aches Last Admin: 09/15/16 11:38 Dose: 650 mg Albuterol/Ipratropium (Duoneb 3 Mg/0.5 Mg (3 Ml) Ud) 3 ml IH Q2H PRN PRN Reason: Shortness of Breath Last Admin: 09/16/16 14:20 Dose: 3 ml Apixaban (Eliquis) 10 mg PO BID [facility] PRN Reason: Protocol Famotidine (Pepcid) 20 mg PO DAILY [facility] Last Admin: 09/16/16 10:03 Dose: 20 mg Azithromycin 250 mg/ Sodium (Chloride) 250 mls @ 167 mls/hr IVPB DAILY [facility] PRN Reason: Protocol Last Admin: 09/16/16 10:54 Dose: 167 mls/hr Heparin Sodium/Sodium Chloride (Heparin 74882 Units/250ml 1/2 Normal Saline) 25 ,000 units in 250 mls @ 19.464 mls/hr IV .[id number] PRN; Protocol; 18 UNITS/KG/HR PRN Reason: ADJUST RATE PER MD ORDER Stop: 09/16/16 18:01 Last Admin: 09/16/16 04:55 Dose: 13.5 units/kg/hr, 14.598 mls/hr Piperacillin Sod/Tazobactam Sod (Zosyn 3.375 In Ns 100ml) 100 mls @ 200 mls/hr IVPB Q6 [facility] PRN Reason: Protocol Stop: 09/20/16 12:01 Last Admin: 09/16/16 12:21 Dose: 200 mls/hr Ibuprofen (Motrin Tab) 400 mg PO Q6 PRN PRN Reason: Pain, moderate (4-7) Last Admin: 09/16/16 13:40 Dose: 400 mg Lidocaine (Lidoderm) 1 ea TD DAILY [facility] Last Admin: 09/16/16 13:41 Dose: 1 ea Methadone HCl (Methadone) 5 mg PO DAILY [facility] Last Admin: 09/16/16 10:01 Dose: 5 mg Methadone HCl (Methadone) 140 mg PO DAILY [facility] Last Admin: 09/16/16 10:02 Dose: 140 mg Nitroglycerin (Nitrostat Sl Tab) 0.4 mg SL Q5M PRN PRN Reason: chest pain - Labs Labs: 09/16/16 07:30 09/16/16 07:30 PT 12.0 Seconds (9.9-11.8) H 09/16/16 07:30 INR 1.11 (0.93-1.08) H 09/16/16 07:30 APTT 64.0 Seconds (23.7-30.8) H 09/16/16 07:30 Attending/Attestation - Attestation I have personally seen and examined this patient.: Yes I have fully participated in the care of the patient.: Yes I have reviewed all pertinent clinical information, including history, physical exam and plan: Yes Notes (Text): 09/15/16 56 year old male with past medical history of PE, hypertension, and chronic opioid dependency on methadone who presented which pleuritic chest pain and shortness of breath. He was found to have DVT/PE and multifocal lung disease consistent with pneumonia. Hematology and ID evaluation were requested. Continue with anticoagulation and iv antibiotics. Flori Paula MD Hospitalist.
--- NOTE | 2016-09-15 13:48 | PN ---
DATE: 09/15/2016 REASON FOR DICTATION: Transferred care to me by Dr. Palencia. REASON FOR CONSULTATION: Acute pulmonary embolism. BRIEF CLINICAL HISTORY: This is a 56-year-old male with history of alcohol abuse, on methadone; hist ory of pulmonary embolism diagnosed in last year, placed on Coumadin therapy at that time. Admitted yesterday. Highly suspicious for pulmonary embolism and also suggestion of multifocal airspace disea se as well as pulmonary infarction, is also considering the right lower lobe. Also suggested acute p ulmonary embolism in the right distal mean pulmonary artery. INR was subtherapeutic on admission. A pparently, it looks like patient is noncompliant. Denies any chest pain, shortness of breath, any pa lpitation. PHYSICAL EXAMINATION: As follows: VITAL SIGNS: Temperature of 100.6, heart rate 101, blood pressure 112/54. HEENT: PERRLA, intact. NECK: Supple. No carotid bruits. No thyromegaly. CHEST: Clear to auscultation. HEART: S1, S2 regular. ABDOMEN: Soft. EXTREMITIES: Clubbing and cyanosis negative. BLOOD WORKUP: As follows: WBC 13.5, hemoglobin ____, hematocrit 34.5, platelet count 198. Chemistr y shows sodium 135, potassium 4.3, chloride 101, carbon dioxide 23, anion gap of 11, BUN 14, creatini ne 0.9. Troponin 0.01. IMPRESSION: No evidence of acute coronary syndrome, acute pulmonary embolism, recurrent pulmonary em bolism, history of deep venous thrombosis, pulmonary embolism in the past, noncompliance with medicat ions, subtherapeutic INR, pneumonia, history of alcohol abuse, history of alcohol abuse. The patient had echocardiography done yesterday that revealed normal left ventricular size, concentri c left ventricular hypertrophy, normal left ventricular function, diastolic dysfunction, right ventri cular function mildly reduced. Aorta was mild to moderately enlarged, mild aortic regurgitation, no pulmonary hypertension, right ventricular systolic pressure 27. RECOMMENDATION: Continue antibiotic as ordered. Continue IV heparin. Continue workup for DVT, PE. Consider restarting Coumadin. We will follow with you. Thank you, Dr. Paula, for providing the opportunity in taking care of the patient. Once the blood sa mple is done, we will restart Coumadin. We will follow with you. Thank you, Dr. Paula, for providing us the opportunity in taking care of the patient. Ángel Almonte MD cc: [id number] TT: 09/15/2016 13:48:38 Confirmation # [id number] Dictation # [id number]
[2016-09-15] MEDS ORDERED: Vancomycin 1gm in NS 250ml 1 GM/250 ML BAG IVPB STA (16:02)
[2016-09-15] MEDS ORDERED: Piperacill/Tazo 4.5gm in NS 4.5 GM/100 ML BAG IVPB STA (16:07)
[2016-09-15 16:23] LABS: URINE BILIRUBIN NEGATIVE (NEGATIVE); URINE BLOOD NEGATIVE (NEGATIVE); URINE GLUCOSE (UA) NEGATIVE (NEGATIVE); URINE KETONE NEGATIVE (NEGATIVE); URINE LEUKOCYTE ESTERASE NEGATIVE Leu/uL (NEGATIVE); URINE PROTEIN TRACE mg/dL (<30 mg/dL); URINE UROBILINOGEN 0.2 E.U./dL (<1 E.U./dL)
[2016-09-15 16:27] LABS: URINE APPEARANCE CLEAR (CLEAR); URINE COLOR YELLOW (YELLOW)
[2016-09-15 16:32] LABS: URINE RBC NEGATIVE /hpf (0-2); URINE WBC NEGATIVE /hpf (0-6)
[2016-09-15] MEDS: Albuterol-Ipratrop 3 mg / 0.5 (3 ml) UD IH PRN (23:30)
[2016-09-16] MEDS: Heparin25000 units/250ml 1/2NS 25,000 UNITS/250 ML BAG IV PRN (04:55)
[2016-09-16 08:02] LABS: ADD MANUAL DIFF? NO
[2016-09-16 08:07] LABS: BASO # 0.03 K/mm3 (0.0-2.0); BASO % 0.2 % (0.0-3.0); EOS # 0.1 (0.0-0.7); EOS % 0.8 % (1.5-5.0); GRAN # 8.09 (1.4-6.5); GRAN % 65.4 % (50.0-68.0); HEMATOCRIT 33.3 % (42.0-52.0); LYMPH # 2.6 (1.2-3.4); LYMPH % 21.3 % (22.0-35.0); MEAN CORPUSCULAR HEMOGLOBIN 28.6 pg (25.0-35.0); MEAN CORPUSCULAR HGB CONC 31.8 g/dl (31.0-37.0); MONO # 1.5 (0.1-0.6); MONO % 12.3 % (1.0-6.0); PLATELET COUNT 196 10^3/uL (120.0-450.0); RED CELL DISTRIBUTION WIDTH 15.2 % (11.5-14.5); WHITE BLOOD COUNT 12.4 10^3/ul (4.5-11.0)
[2016-09-16 08:18] LABS: INR 1.11 (0.93-1.08)
[2016-09-16] MEDS: Albuterol-Ipratrop 3 mg / 0.5 (3 ml) UD IH PRN ×2 (08:31→14:20)
[2016-09-16 08:58] LABS: ALB/GLOB RATIO 1.1 (1.1-1.8); ALKALINE PHOSPHATASE 74 U/L (38-133); ALT/SGPT 22 U/L (7-56); AST/SGOT 17 U/L (15-59); BILIRUBIN,TOTAL 0.5 mg/dL (0.2-1.3); BLOOD UREA NITROGEN 9 mg/dL (7-21); CALCIUM 8.8 mg/dL (8.4-10.5); CARBON DIOXIDE 27 mmol/L (21-33); CHLORIDE 99 mmol/L (98-107); GFR AFRICAN-AMERICAN > 60; GLUCOSE,RANDOM 95 mg/dL (70-110); MAGNESIUM 1.9 mg/dL (1.7-2.2); PHOSPHOROUS 3.5 mg/dL (2.5-4.5); POTASSIUM 4.1 mmol/L (3.6-5.0); SODIUM 134 mmol/L (132-148); TOTAL PROTEIN 7.3 g/dL (5.8-8.3)
[2016-09-16] MEDS ORDERED: METHADONE 150 MG PO SCH (10:00)
[2016-09-16] MEDS: Azithromycin 250 MG in Sodium Chloride 0.9% 250 ML IVPB SCH (10:54)
--- NOTE | 2016-09-16 11:13 | CP.PCM.CON ---
History of Present Illness - History of Present Illness History of Present Illness: 56 year old male with PMH of recurrent venous thromboembolism, HTN, depression, obesity with BMI 31 came in to [facility] complaining of right sided chest pain on inspiration associated with shortness of breath and mild non -productive cough. The patient admits to missing some doses of his Warfarin. He was then found to have bilateral acute pulmonary emboli and is being treated with anticoagulation. There was also noted of some airspace disease in the lower lobes and the patient developed fever yesterday and Infectious diseases consult is requested to further evaluate and manage. Currently the patient continues to have chest pain on breathing, denies fever this morning, no chills , no nausea or vomiting, no headache or dizziness, no abdominal pain, no diarrhea, no dysuria. Review of Systems - Review of Systems All systems: reviewed and no additional remarkable complaints except (as per HPI ) Past Patient History - Infectious Disease Hx of Infectious Diseases: None - Tetanus Immunizations Tetanus Immunization: Unknown - Past Medical History & Family History Past Medical History?: Yes - Past Social History Smoking Status: Never Smoked Alcohol: Other (See HPI.) Drugs: Other (see HPI.) - CARDIAC Hx Cardiac Disorders: Yes Hx Hypertension: Yes - PULMONARY Hx Respiratory Disorders: Yes Other/Comment: Pulmonary embolism -multiple times. - NEUROLOGICAL Hx Neurological Disorder: No - HEENT Hx HEENT Problems: No - RENAL Hx Chronic Kidney Disease: No - ENDOCRINE/METABOLIC Hx Endocrine Disorders: No - HEMATOLOGICAL/ONCOLOGICAL Hx Blood Disorders: Yes Other/Comment: PE, DVT - INTEGUMENTARY Hx Dermatological Problems: No - MUSCULOSKELETAL/RHEUMATOLOGICAL Hx Falls: No Hx Unsteady Gait: Yes (b/l acl tears, amb with cane) - GASTROINTESTINAL Hx Gastrointestinal Disorders: No - GENITOURINARY/GYNECOLOGICAL Hx Genitourinary Disorders: No - PSYCHIATRIC Hx Psychophysiologic Disorder: Yes Hx Depression: Yes Hx Substance Use: (been in methadone program for 5 years) - SURGICAL HISTORY Other/Comment: tonsillectomy, adenoidectomy - ANESTHESIA Hx Anesthesia: Yes Hx Anesthesia Reactions: No Hx Malignant Hyperthermia: No Meds Allergies/Adverse Reactions: Allergies Allergy/AdvReac Type Severity Reaction Status Date / Time No Known Allergies Allergy Verified 09/14/16 01:45 - Medications Medications: Current Medications Acetaminophen (Tylenol 325mg Tab) 650 mg PO Q6 PRN PRN Reason: Temp>100.4, aches Last Admin: 09/15/16 11:38 Dose: 650 mg Albuterol/Ipratropium (Duoneb 3 Mg/0.5 Mg (3 Ml) Ud) 3 ml IH Q2H PRN PRN Reason: Shortness of Breath Famotidine (Pepcid) 20 mg PO DAILY [facility] Last Admin: 09/15/16 09:37 Dose: 20 mg Ceftriaxone Sodium (Rocephin 1 Gram Ivpb) 1 gm in 100 mls @ 100 mls/hr IVPB DAILY [facility] PRN Reason: Protocol Last Admin: 09/15/16 09:37 Dose: 100 mls/hr Azithromycin 250 mg/ Sodium (Chloride) 250 mls @ 167 mls/hr IVPB DAILY [facility] PRN Reason: Protocol Last Admin: 09/15/16 10:45 Dose: 167 mls/hr Heparin Sodium/Sodium Chloride (Heparin 33102 Units/250ml 1/2 Normal Saline) 25 ,000 units in 250 mls @ 19.464 mls/hr IV .[id number] PRN; Protocol; 18 UNITS/KG/HR PRN Reason: ADJUST RATE PER MD ORDER Last Admin: 09/15/16 12:25 Dose: 13.5 units/kg/hr, 14.598 mls/hr Ibuprofen (Motrin Tab) 400 mg PO Q6 PRN PRN Reason: Pain, moderate (4-7) Last Admin: 09/14/16 15:05 Dose: 400 mg Methadone HCl (Methadone) 5 mg PO DAILY [facility] Methadone HCl (Methadone) 140 mg PO DAILY [facility] Nitroglycerin (Nitrostat Sl Tab) 0.4 mg SL Q5M PRN PRN Reason: chest pain Physical Exam - Constitutional Appears: Non-toxic, No Acute Distress - Head Exam Head Exam: NORMAL INSPECTION - ENT Exam ENT Exam: Mucous Membranes Moist - Neck Exam Neck exam: Negative for: Lymphadenopathy, Meningismus - Respiratory Exam Respiratory Exam: Decreased Breath Sounds - Cardiovascular Exam Cardiovascular Exam: +S1, +S2 - GI/Abdominal Exam GI & Abdominal Exam: Soft. absent: Tenderness Results - Vital Signs Recent Vital Signs: Last Vital Signs Temp 100.6 F H 09/15/16 12:00 Pulse 101 H 09/15/16 12:00 Resp 20 09/15/16 12:00 BP 112/54 L 09/15/16 12:00 Pulse Ox 96 09/15/16 06:00 - Labs Result Diagrams: 09/16/16 07:30 09/16/16 07:30 Labs: Laboratory Results - last 24 hr 09/14/16 09/14/16 09/14/16 18:47 20:24 20:24 WBC RBC Hgb Hct MCV MCH MCHC RDW Plt Count MPV Gran % Lymph % (Auto) Angelina % (Auto) Eos % (Auto) Baso % (Auto) Gran # Lymph # Angelina # Eos # Baso # APTT 89.1 H* Sodium Potassium Chloride Carbon Dioxide Anion Gap BUN Creatinine Est GFR ( Amer) Est GFR (Non-Af Amer) Random Glucose Calcium Phosphorus Magnesium Iron TIBC % Saturation Ferritin 387.0 Total Bilirubin AST ALT Alkaline Phosphatase Lactate Dehydrogenase 302 L Total Creatine Kinase 75 Troponin I < 0.01 Total Protein Albumin Globulin Albumin/Globulin Ratio Prostate Specific Ag 0.7 Vitamin B12 280 Folate 6.3 Procalcitonin 09/14/16 09/15/16 09/15/16 20:24 02:22 06:45 WBC 13.5 H RBC 3.88 Hgb 11.1 L Hct 34.5 L MCV 88.9 MCH 28.6 MCHC 32.2 RDW 15.3 H Plt Count 198 MPV 10.1 Gran % 75.6 H Lymph % (Auto) 14.1 L Angelina % (Auto) 9.5 H Eos % (Auto) 0.6 L Baso % (Auto) 0.2 Gran # 10.22 H Lymph # 1.9 Angelina # 1.3 H Eos # 0.1 Baso # 0.03 APTT 77.3 H* Sodium Potassium Chloride Carbon Dioxide Anion Gap BUN Creatinine Est GFR ( Amer) Est GFR (Non-Af Amer) Random Glucose Calcium Phosphorus Magnesium Iron 19 L TIBC 291 % Saturation 6 L Ferritin Total Bilirubin AST ALT Alkaline Phosphatase Lactate Dehydrogenase Total Creatine Kinase Troponin I Total Protein Albumin Globulin Albumin/Globulin Ratio Prostate Specific Ag Vitamin B12 Folate Procalcitonin 09/15/16 09/15/16 09/15/16 06:45 06:45 08:30 WBC RBC Hgb Hct MCV MCH MCHC RDW Plt Count MPV Gran % Lymph % (Auto) Angelina % (Auto) Eos % (Auto) Baso % (Auto) Gran # Lymph # Angelina # Eos # Baso # APTT 71.6 H* Sodium 135 Potassium 4.3 Chloride 101 Carbon Dioxide 27 Anion Gap 11 BUN 14 Creatinine 0.8 Est GFR ( Amer) > 60 Est GFR (Non-Af Amer) > 60 Random Glucose 101 Calcium 9.0 Phosphorus 2.8 Magnesium 1.8 Iron TIBC % Saturation Ferritin Total Bilirubin 0.6 AST 20 ALT 27 Alkaline Phosphatase 74 Lactate Dehydrogenase Total Creatine Kinase Troponin I Total Protein 7.3 Albumin 3.8 Globulin 3.4 Albumin/Globulin Ratio 1.1 Prostate Specific Ag Vitamin B12 Folate Procalcitonin 0.14 L 09/15/16 15:05 WBC RBC Hgb Hct MCV MCH MCHC RDW Plt Count MPV Gran % Lymph % (Auto) Angelina % (Auto) Eos % (Auto) Baso % (Auto) Gran # Lymph # Angelina # Eos # Baso # APTT 64.3 H Sodium Potassium Chloride Carbon Dioxide Anion Gap BUN Creatinine Est GFR ( Amer) Est GFR (Non-Af Amer) Random Glucose Calcium Phosphorus Magnesium Iron TIBC % Saturation Ferritin Total Bilirubin AST ALT Alkaline Phosphatase Lactate Dehydrogenase Total Creatine Kinase Troponin I Total Protein Albumin Globulin Albumin/Globulin Ratio Prostate Specific Ag Vitamin B12 Folate Procalcitonin Assessment & Plan - Assessment and Plan (Free Text) Plan: Assessment Systemic Inflammatory Response Syndrome, consider due to acute pulmonary embolism, R/O community-acquired pneumonia, bilateral recurrent venous thromboembolism HTN depression obesity with BMI 31 Plan Switched rocephin to Zosyn and continued Zithromax pending blood, sputum cx, PCT ; reviewed CT chest will monitor clinically
[2016-09-16] MEDS: Piperacillin/Tazobact 3.375 gm 100 ML IVPB SCH ×3 (12:21→23:48)
--- NOTE | 2016-09-16 13:09 | CP.PCM.PN ---
<Micah Peoples - Last Filed: 09/16/16 13:16> Subjective - Date & Time of Evaluation Date of Evaluation: 09/16/16 Time of Evaluation: 13:05 - Subjective Subjective: Medicine progress note. Attending: Dr. Paula Pt seen and examined at bedside. No acute distress. No events overnight. Pt to start eliquis today. Will stop heparin drip after first dose. Pt to get lidocaine patch for rib pain. No fevers, vomiting, diarrhea. Objective - Vital Signs/Intake and Output Vital Signs (last 24 hours): Temp Pulse Resp BP Pulse Ox 98.7 F 95 H 20 142/87 96 09/16/16 11:51 09/16/16 11:51 09/16/16 11:51 09/16/16 11:51 09/15/16 06:00 Intake and Output: 09/16/16 09/16/16 06:59 18:59 Intake Total 1340 Output Total 500 Balance 840 - Medications Medications: Current Medications Acetaminophen (Tylenol 325mg Tab) 650 mg PO Q6 PRN PRN Reason: Temp>100.4, aches Last Admin: 09/15/16 11:38 Dose: 650 mg Albuterol/Ipratropium (Duoneb 3 Mg/0.5 Mg (3 Ml) Ud) 3 ml IH Q2H PRN PRN Reason: Shortness of Breath Last Admin: 09/16/16 08:31 Dose: 3 ml Famotidine (Pepcid) 20 mg PO DAILY [facility] Last Admin: 09/16/16 10:03 Dose: 20 mg Azithromycin 250 mg/ Sodium (Chloride) 250 mls @ 167 mls/hr IVPB DAILY [facility] PRN Reason: Protocol Last Admin: 09/16/16 10:54 Dose: 167 mls/hr Heparin Sodium/Sodium Chloride (Heparin 29083 Units/250ml 1/2 Normal Saline) 25 ,000 units in 250 mls @ 19.464 mls/hr IV .[id number] PRN; Protocol; 18 UNITS/KG/HR PRN Reason: ADJUST RATE PER MD ORDER Last Admin: 09/16/16 04:55 Dose: 13.5 units/kg/hr, 14.598 mls/hr Piperacillin Sod/Tazobactam Sod (Zosyn 3.375 In Ns 100ml) 100 mls @ 200 mls/hr IVPB Q6 [facility] PRN Reason: Protocol Stop: 09/20/16 12:01 Last Admin: 09/16/16 12:21 Dose: 200 mls/hr Ibuprofen (Motrin Tab) 400 mg PO Q6 PRN PRN Reason: Pain, moderate (4-7) Last Admin: 09/14/16 15:05 Dose: 400 mg Lidocaine (Lidoderm) 1 ea TD DAILY [facility] Methadone HCl (Methadone) 5 mg PO DAILY [facility] Last Admin: 09/16/16 10:01 Dose: 5 mg Methadone HCl (Methadone) 140 mg PO DAILY [facility] Last Admin: 09/16/16 10:02 Dose: 140 mg Nitroglycerin (Nitrostat Sl Tab) 0.4 mg SL Q5M PRN PRN Reason: chest pain - Labs Labs: 09/16/16 07:30 09/16/16 07:30 PT 12.0 Seconds (9.9-11.8) H 09/16/16 07:30 INR 1.11 (0.93-1.08) H 09/16/16 07:30 APTT 64.0 Seconds (23.7-30.8) H 09/16/16 07:30 - Constitutional Appears: Non-toxic, No Acute Distress - Head Exam Head Exam: ATRAUMATIC, NORMAL INSPECTION, NORMOCEPHALIC - Eye Exam Eye Exam: EOMI - ENT Exam ENT Exam: Mucous Membranes Moist - Neck Exam Neck Exam: Full ROM, Normal Inspection - Respiratory Exam Respiratory Exam: Decreased Breath Sounds, NORMAL BREATHING PATTERN. absent: Respiratory Distress - Cardiovascular Exam Cardiovascular Exam: +S1, +S2 - GI/Abdominal Exam GI & Abdominal Exam: Soft, Normal Bowel Sounds. absent: Tenderness - Extremities Exam Extremities Exam: Full ROM, Normal Inspection - Neurological Exam Neurological Exam: Alert, Awake, Oriented x3 - Psychiatric Exam Psychiatric exam: Normal Affect, Normal Mood - Skin Skin Exam: Dry, Intact, Normal Color, Warm Assessment and Plan - Assessment and Plan (Free Text) Assessment: This is a 56 yo male with past medical hx of PE, opioid abuse, htn, depression presenting with PE 1. Pulmonary embolism -continue tylenol for fevers -continue heparin drip>>> will give eliquis 10 bid, 1 dose of eliquis then will stop drip -Dr. Butcher consult. recs appreciated -hypercoag workup in progress -will start eliquis today -Dopplers show acute thrombus in right popliteal/tibial veins 2. Hx of HTN -continue to monitor 3. hx of opioid abuse -continue methadone 145 daily 4. Multifocal airspace disease, lower lobes -pt is afebrile this morning -tylenol for fevers -ibuprofen for pain -ID consult. recs appreciated -will repeat ua/urine culture -azithromycin 250 mg daily -zosyn q 6 hrs -ID consult. Dr. Jovel. recs appreciated. 5. Anemia -iron studies pending 6. GI/DVT ppx -pepcid daily -eliquis [address] Paula <Flori Paula - Last Filed: 09/17/16 07:48> Objective - Vital Signs/Intake and Output Vital Signs (last 24 hours): Temp Pulse Resp BP Pulse Ox 99.6 F 85 19 116/68 94 L 09/17/16 05:59 09/17/16 05:59 09/17/16 05:59 09/17/16 05:59 09/17/16 05:59 Intake and Output: 09/17/16 09/17/16 06:59 18:59 Intake Total 1000 Output Total 400 Balance 600 - Medications Medications: Current Medications Acetaminophen (Tylenol 325mg Tab) 650 mg PO Q6 PRN PRN Reason: Temp>100.4, aches Last Admin: 09/15/16 11:38 Dose: 650 mg Albuterol/Ipratropium (Duoneb 3 Mg/0.5 Mg (3 Ml) Ud) 3 ml IH Q2H PRN PRN Reason: Shortness of Breath Last Admin: 09/17/16 03:00 Dose: 3 ml Apixaban (Eliquis) 10 mg PO BID [facility] PRN Reason: Protocol Last Admin: 09/16/16 17:19 Dose: 10 mg Famotidine (Pepcid) 20 mg PO DAILY [facility] Last Admin: 09/16/16 10:03 Dose: 20 mg Azithromycin 250 mg/ Sodium (Chloride) 250 mls @ 167 mls/hr IVPB DAILY [facility] PRN Reason: Protocol Last Admin: 09/16/16 10:54 Dose: 167 mls/hr Piperacillin Sod/Tazobactam Sod (Zosyn 3.375 In Ns 100ml) 100 mls @ 200 mls/hr IVPB Q6 [facility] PRN Reason: Protocol Stop: 09/20/16 12:01 Last Admin: 09/17/16 05:06 Dose: 200 mls/hr Ibuprofen (Motrin Tab) 400 mg PO Q6 PRN PRN Reason: Pain, moderate (4-7) Last Admin: 09/17/16 04:47 Dose: 400 mg Lidocaine (Lidoderm) 1 ea TD DAILY [facility] Last Admin: 09/16/16 13:41 Dose: 1 ea Methadone HCl (Methadone) 5 mg PO DAILY [facility] Last Admin: 09/16/16 10:01 Dose: 5 mg Methadone HCl (Methadone) 140 mg PO DAILY [facility] Last Admin: 09/16/16 10:02 Dose: 140 mg Nitroglycerin (Nitrostat Sl Tab) 0.4 mg SL Q5M PRN PRN Reason: chest pain - Labs Labs: 09/16/16 07:30 09/16/16 07:30 PT 12.0 Seconds (9.9-11.8) H 09/16/16 07:30 INR 1.11 (0.93-1.08) H 09/16/16 07:30 APTT 64.0 Seconds (23.7-30.8) H 09/16/16 07:30 Attending/Attestation - Attestation I have personally seen and examined this patient.: Yes I have fully participated in the care of the patient.: Yes I have reviewed all pertinent clinical information, including history, physical exam and plan: Yes Notes (Text): 09/16/16 56 year old male with past medical history of PE, hypertension, and chronic opioid dependency on methadone who presented which pleuritic chest pain and shortness of breath. He was found to have DVT/PE and multifocal lung disease consistent with pneumonia. Hematology and ID evaluation were appreciated. He was started on heparin drip for anticoagulation which we will transition to po eliquis. He is on iv antibiotics. Today he still complains of pleuritic chest wall pain on deep inspiration and cough. Will add lidoderm patch. Flori Paula MD Hospitalist.
[2016-09-16] MEDS: Lidocaine 5% Patch TD SCH (13:41)
--- NOTE | 2016-09-16 16:14 | PN ---
DATE: 09/16/2016 REASON FOR CONSULTATION AND FOLLOWUP: Acute pulmonary embolism, cardiac evaluation. BRIEF CLINICAL HISTORY: A 56-year-old female with alcohol abuse, on methadone program, history of PE , on Coumadin, was not taking Coumadin for 1-2 weeks. Admitted with recurrent PE, on heparin. PHYSICAL EXAMINATION: VITAL SIGNS: Temperature afebrile, heart rate 95, blood pressure 142/87. HEENT: PERRLA. Extraocular muscles intact. NECK: Supple. No carotid bruits. No thyromegaly. CHEST: Clear to auscultation. HEART: S1, S2 regular. ABDOMEN: Soft. EXTREMITIES: Clubbing, cyanosis negative. BLOOD WORKUP: WBC 12.4, hemoglobin 10. , hematocrit 33.3, platelet count 196. Chemistry: Sodiu m 134, potassium 4. , chloride 99, carbon dioxide 27, anion gap of 12, BUN 9, creatinine 0.9. IMPRESSION: Recurrent pulmonary embolism, noncompliance with medication, on admission subtherapeutic INR. The patient said that he was not taking for a week or two Coumadin. History of deep vein thro mbosis in the past. The patient had an echo yesterday, revealed left ventricle size normal, normal l eft ventricular function, diastolic dysfunction, right ventricle function reduced, mild to moderate a ortic enlargement, mild aortic regurgitation, pulmonary hypertension, right ventricular systolic pres sure 27. RECOMMENDATION: Continue IV heparin. Continue workup for deep venous thrombosis, pulmonary embolism . Consider restarting Coumadin. Discussed with the patient. The patient does not want Coumadin, wa nted also thinking about the Eliquis, but probably this will not be paid by the insurance. Discussed with the patient. Will discuss with hematology as well. For now, continue antibiotic for pneumonia . We will follow with you. No evidence of acute myocardial infarction. Ángel Almonte MD cc: [id number] TT: 09/16/2016 16:13:42 Confirmation # [id number] Dictation # [id number] en
[2016-09-17] MEDS: Albuterol-Ipratrop 3 mg / 0.5 (3 ml) UD IH PRN ×2 (03:00→08:35)
[2016-09-17] MEDS: Piperacillin/Tazobact 3.375 gm 100 ML IVPB SCH (05:06)
[2016-09-17 07:44] LABS: ADD MANUAL DIFF? NO
[2016-09-17 07:53] LABS: BASO # 0.03 K/mm3 (0.0-2.0); BASO % 0.3 % (0.0-3.0); EOS # 0.5 (0.0-0.7); EOS % 4.4 % (1.5-5.0); GRAN # 7.06 (1.4-6.5); GRAN % 59.6 % (50.0-68.0); HEMATOCRIT 32.7 % (42.0-52.0); LYMPH % 25.6 % (22.0-35.0); MEAN CELL VOLUME 88.9 fL (80.0-105.0); MEAN CORPUSCULAR HEMOGLOBIN 28.5 pg (25.0-35.0); MEAN CORPUSCULAR HGB CONC 32.1 g/dl (31.0-37.0); MEAN PLATELET VOLUME 9.8 fl (7.0-11.0); MONO # 1.2 (0.1-0.6); MONO % 10.1 % (1.0-6.0); PLATELET COUNT 219 10^3/uL (120.0-450.0); WHITE BLOOD COUNT 11.8 10^3/ul (4.5-11.0)
[2016-09-17 08:15] LABS: ALB/GLOB RATIO 1.1 (1.1-1.8); ALKALINE PHOSPHATASE 71 U/L (38-133); ALT/SGPT 30 U/L (7-56); AST/SGOT 21 U/L (15-59); BILIRUBIN,TOTAL 0.6 mg/dL (0.2-1.3); BLOOD UREA NITROGEN 10 mg/dL (7-21); CALCIUM 8.7 mg/dL (8.4-10.5); CARBON DIOXIDE 27 mmol/L (21-33); CHLORIDE 101 mmol/L (98-107); GFR AFRICAN-AMERICAN > 60; GLUCOSE,RANDOM 87 mg/dL (70-110); PHOSPHOROUS 4.2 mg/dL (2.5-4.5); POTASSIUM 3.9 mmol/L (3.6-5.0); SODIUM 137 mmol/L (132-148); TOTAL PROTEIN 7.2 g/dL (5.8-8.3)
[2016-09-17 08:32] LABS: MAGNESIUM 2.1 mg/dL (1.7-2.2)
[2016-09-17] MEDS: Lidocaine 5% Patch TD SCH (10:01)
[2016-09-17] MEDS: POLYETHYLENE GLYCOL 3350 17 GM/Dose PACKET PO SCH ×2 (10:01→10:21)
[2016-09-17] MEDS: Azithromycin 250 MG in Sodium Chloride 0.9% 250 ML IVPB SCH (10:30)
--- NOTE | 2016-09-17 11:19 | PN ---
DATE: 09/17/2016 The patient is in bed, in no acute distress, nontoxic, no fevers and chills. PHYSICAL EXAMINATION: VITAL SIGNS: Temperature is 99, blood pressure is 116/60, respiratory rate of 20, heart rate of 85. HEENT: Unremarkable. NECK: Supple. LUNGS: Have decreased breath sounds. HEART: Normal S1, S2. ABDOMEN: Soft, nontender. LABORATORY EXAMINATION: Reveals a white count of 11,800, hemoglobin of 10, platelets of 219. Chemis tries reveals the BUN of 10, creatinine of 0.8 and the procalcitonin is 0.14 and 0.17. Urinalysis is noted and toxicology revealed positive methadone. Microbiology reveals the patient's blood cultures are no growth. Review of the orders reveals the patient to be on Zosyn. Review of the ultrasound of the lower extre mities reveals the patient to have acute occlusive thrombus in the right popliteal and tibial veins. CAT scan of the chest, filling defects and consistent with acute pulmonary emboli in the right dista l main main pulmonary artery. ASSESSMENT AND PLAN: A 56-year-old male with hypertension, depression, obesity, body mass index of 3 1, history of recurrent venous thromboembolism and with leukocytosis, tachycardia, low grade fevers. Presenting now with systemic inflammatory response syndrome with pulmonary emboli and a deep venous thrombosis with negative blood cultures, negative procalcitonin. We will discontinue the Zosyn. The patient is at risk for developing nosocomial infections. He is having significant chest pain. Chalino Reed MD cc: [id number] TT: 09/17/2016 11:18:56 Confirmation # [id number] Dictation # [id number] en
--- NOTE | 2016-09-17 13:35 | CP.PCM.PN ---
<Micah Peoples - Last Filed: 09/17/16 13:37> Subjective - Date & Time of Evaluation Date of Evaluation: 09/17/16 Time of Evaluation: 13:30 - Subjective Subjective: Med progress note. Attending: Dr. Paula Pt seen and examined at bedside. No acute distress, feeling better, on eliquis now. Has significant constipatuion. No fevers, chills, vomiting, diarrhea, dizziness. Objective - Vital Signs/Intake and Output Vital Signs (last 24 hours): Temp Pulse Resp BP Pulse Ox 98.1 F 85 20 134/68 94 L 09/17/16 12:00 09/17/16 12:00 09/17/16 12:00 09/17/16 12:00 09/17/16 05:59 Intake and Output: 09/17/16 09/17/16 06:59 18:59 Intake Total 1000 Output Total 400 Balance 600 - Medications Medications: Current Medications Acetaminophen (Tylenol 325mg Tab) 650 mg PO Q6 PRN PRN Reason: Temp>100.4, aches Last Admin: 09/15/16 11:38 Dose: 650 mg Albuterol/Ipratropium (Duoneb 3 Mg/0.5 Mg (3 Ml) Ud) 3 ml IH Q2H PRN PRN Reason: Shortness of Breath Last Admin: 09/17/16 08:35 Dose: 3 ml Apixaban (Eliquis) 10 mg PO BID [facility] PRN Reason: Protocol Last Admin: 09/17/16 10:01 Dose: 10 mg Docusate Sodium (Colace) 100 mg PO TID [facility] Last Admin: 09/17/16 10:01 Dose: 100 mg Famotidine (Pepcid) 20 mg PO DAILY [facility] Last Admin: 09/17/16 10:02 Dose: 20 mg Azithromycin 250 mg/ Sodium (Chloride) 250 mls @ 167 mls/hr IVPB DAILY [facility] PRN Reason: Protocol Last Admin: 09/17/16 10:30 Dose: 167 mls/hr Ibuprofen (Motrin Tab) 400 mg PO Q6 PRN PRN Reason: Pain, moderate (4-7) Last Admin: 09/17/16 04:47 Dose: 400 mg Lidocaine (Lidoderm) 1 ea TD DAILY [facility] Last Admin: 09/17/16 10:01 Dose: 1 ea Methadone HCl (Methadone) 5 mg PO DAILY [facility] Last Admin: 09/17/16 10:16 Dose: 5 mg Methadone HCl (Methadone) 140 mg PO DAILY [facility] Last Admin: 09/17/16 10:01 Dose: 140 mg Nitroglycerin (Nitrostat Sl Tab) 0.4 mg SL Q5M PRN PRN Reason: chest pain Polyethylene Glycol (Miralax) 17 gm PO DAILY [facility] Last Admin: 09/17/16 10:21 Dose: Not Given - Labs Labs: 09/17/16 07:25 09/17/16 07:25 PT 12.0 Seconds (9.9-11.8) H 09/16/16 07:30 INR 1.11 (0.93-1.08) H 09/16/16 07:30 APTT 64.0 Seconds (23.7-30.8) H 09/16/16 07:30 - Constitutional Appears: Non-toxic, No Acute Distress - Head Exam Head Exam: ATRAUMATIC, NORMAL INSPECTION, NORMOCEPHALIC - Eye Exam Eye Exam: EOMI - ENT Exam ENT Exam: Mucous Membranes Moist - Neck Exam Neck Exam: Full ROM, Normal Inspection - Respiratory Exam Respiratory Exam: Chest Wall Tenderness, NORMAL BREATHING PATTERN. absent: Respiratory Distress - Cardiovascular Exam Cardiovascular Exam: +S1, +S2 - GI/Abdominal Exam GI & Abdominal Exam: Soft, Normal Bowel Sounds. absent: Tenderness - Extremities Exam Extremities Exam: Full ROM, Normal Inspection - Neurological Exam Neurological Exam: Alert, Awake, Oriented x3 - Psychiatric Exam Psychiatric exam: Normal Affect, Normal Mood - Skin Skin Exam: Dry, Intact, Normal Color, Warm Assessment and Plan - Assessment and Plan (Free Text) Assessment: This is a 56 yo male with past medical hx of PE, opioid abuse, htn, depression presenting with PE 1. Pulmonary embolism -continue tylenol for fevers -off of heparin drip, now on eliquis 10 mg po bid -Dr. Butcher consult. recs appreciated -hypercoag workup in progress -Dopplers show acute thrombus in right popliteal/tibial veins 2. Hx of HTN -continue to monitor 3. hx of opioid abuse -continue methadone 145 mg daily 4. Multifocal airspace disease, lower lobes -pt is afebrile this morning -tylenol for fevers -ibuprofen for pain -lidocaine patch for pain -ID consult. recs appreciated -urine shows trace protein, urine culture negative -azithromycin 250 mg daily -dc zosyn -ID consult. Dr. Jovel. recs appreciated. 5. Anemia -iron low, will need colonoscopy as outpt 6. GI/DVT ppx -pepcid daily -eliquis 10 bid -pt eval discussed with Dr. Paula <Flori Paula - Last Filed: 09/17/16 16:49> Objective - Vital Signs/Intake and Output Vital Signs (last 24 hours): Temp Pulse Resp BP Pulse Ox 98.1 F 86 20 134/68 94 L 09/17/16 12:00 09/17/16 14:00 09/17/16 12:00 09/17/16 12:00 09/17/16 05:59 Intake and Output: 09/17/16 09/17/16 06:59 18:59 Intake Total 1000 660 Output Total 400 800 Balance 600 -140 - Medications Medications: Current Medications Acetaminophen (Tylenol 325mg Tab) 650 mg PO Q6 PRN PRN Reason: Temp>100.4, aches Last Admin: 09/15/16 11:38 Dose: 650 mg Albuterol/Ipratropium (Duoneb 3 Mg/0.5 Mg (3 Ml) Ud) 3 ml IH Q2H PRN PRN Reason: Shortness of Breath Last Admin: 09/17/16 08:35 Dose: 3 ml Apixaban (Eliquis) 10 mg PO BID [facility] PRN Reason: Protocol Last Admin: 09/17/16 10:01 Dose: 10 mg Docusate Sodium (Colace) 100 mg PO TID [facility] Last Admin: 09/17/16 14:50 Dose: 100 mg Famotidine (Pepcid) 20 mg PO DAILY [facility] Last Admin: 09/17/16 10:02 Dose: 20 mg Azithromycin 250 mg/ Sodium (Chloride) 250 mls @ 167 mls/hr IVPB DAILY [facility] PRN Reason: Protocol Last Admin: 09/17/16 10:30 Dose: 167 mls/hr Ibuprofen (Motrin Tab) 400 mg PO Q6 PRN PRN Reason: Pain, moderate (4-7) Last Admin: 09/17/16 04:47 Dose: 400 mg Lidocaine (Lidoderm) 1 ea TD DAILY [facility] Last Admin: 09/17/16 10:01 Dose: 1 ea Methadone HCl (Methadone) 5 mg PO DAILY [facility] Last Admin: 09/17/16 10:16 Dose: 5 mg Methadone HCl (Methadone) 140 mg PO DAILY [facility] Last Admin: 09/17/16 10:01 Dose: 140 mg Nitroglycerin (Nitrostat Sl Tab) 0.4 mg SL Q5M PRN PRN Reason: chest pain Polyethylene Glycol (Miralax) 17 gm PO DAILY [facility] Last Admin: 09/17/16 10:21 Dose: Not Given - Labs Labs: 09/17/16 07:25 09/17/16 07:25 PT 12.0 Seconds (9.9-11.8) H 09/16/16 07:30 INR 1.11 (0.93-1.08) H 09/16/16 07:30 APTT 64.0 Seconds (23.7-30.8) H 09/16/16 07:30 Attending/Attestation - Attestation I have personally seen and examined this patient.: Yes I have fully participated in the care of the patient.: Yes I have reviewed all pertinent clinical information, including history, physical exam and plan: Yes Notes (Text): 09/17/16 16:47 56 year old male with past medical history of PE, hypertension, and chronic opioid dependency on methadone who presented which pleuritic chest pain and shortness of breath. He was found to have DVT/PE and multifocal lung disease consistent with pneumonia. He was seen by hematology and ID. He is on eliquis for anticoagulation. He is on antibiotics as per ID. He was started on lidoderm patch for his chest wall pain with some improvement of symptoms. He is on methadone for chronic opiate use. He is complaining of constipation and relistor is ordered. Flori Paula MD Hospitalist.
--- NOTE | 2016-09-17 19:57 | PN ---
DATE: 09/17/2016 REASON FOR CONSULTATION AND FOLLOWUP: Acute PE, cardiac evaluation. BRIEF CLINICAL HISTORY: A 56-year-old male with history of alcohol abuse, history of methadone progr am, history of PE on the Coumadin not taking 1-2 weeks, admitted with acute PE, on heparin. PHYSICAL EXAMINATION: VITAL SIGNS: Temperature afebrile, heart rate 84, blood pressure 134/84. HEENT: PERRLA. Extraocular muscles intact. NECK: Supple. No carotid bruits. No thyromegaly. CHEST: Clear to auscultation. HEART: S1, S2 regular. ABDOMEN: Soft. EXTREMITIES: Clubbing and cyanosis negative. LABORATORY DATA: Blood workup as follows: WBC 11____, hemoglobin 10 ____, hematocrit 32.7, platelet count ____ 19. Chemistry shows sodium 137, potassium 3.9, chloride 101, carbon dioxide 27, anion ga p of 13, BUN 10, creatinine 0.8. IMPRESSION: Acute PE, noncompliance with the medication. The patient was on Coumadin and was not ta yemi Coumadin for 1-2 weeks, multifocal pneumonia, deep venous thrombosis, PE, complaining of constip ation as well. History of a PE in the past. The patient's echo yesterday revealed left ventricle si ze is normal, normal left ventricular function, diastolic ____function, ____ function is mild aortic regurgitation, right ventricular systolic pressure 27. RECOMMENDATION: Continue IV heparin. Continue workup for deep vein thrombosis, hypercoagulable stat e, consider restarting Coumadin. Discussed with the patient, the patient is interested in Eliquis, b ut has insurance issue and does not want to take Coumadin. We will follow ____ interim continue hepa rin until this issue is settled. Will follow with you. We will discontinue telemetry. Thank you, Dr. Paula, for providing the opportunity in taking care of this patient. We will give als o lactulose for constipation. Ángel Almonte MD cc: [phone] TT: 09/17/2016 19:56:34 Confirmation # [id number] Dictation # [id number] jn
[2016-09-17 23:12] LABS: B2 GLYCOPROTEIN I AB(IGA) <9 SAU (<=20); B2 GLYCOPROTEIN I AB(IGG) <9 SGU (<=20); B2 GLYCOPROTEIN I AB(IGM) <9 SMU (<=20)
[2016-09-18 06:21] LABS: CARDIOLIPIN AB (IGA) <11 APL (<=11); PHOSPHATIDYLSERINE AB IGA <20 U/mL (<20); PHOSPHATIDYLSERINE AB IGM <25 U/mL (<25)
[2016-09-18 06:46] LABS: ADD MANUAL DIFF? NO
[2016-09-18 07:16] LABS: BASO # 0.03 K/mm3 (0.0-2.0); BASO % 0.3 % (0.0-3.0); EOS # 0.8 (0.0-0.7); EOS % 6.4 % (1.5-5.0); GRAN # 6.19 (1.4-6.5); GRAN % 51.8 % (50.0-68.0); HEMATOCRIT 31.3 % (42.0-52.0); LYMPH # 3.6 (1.2-3.4); LYMPH % 29.8 % (22.0-35.0); MEAN CELL VOLUME 89.7 fL (80.0-105.0); MEAN CORPUSCULAR HEMOGLOBIN 28.9 pg (25.0-35.0); MEAN CORPUSCULAR HGB CONC 32.3 g/dl (31.0-37.0); MEAN PLATELET VOLUME 9.8 fl (7.0-11.0); MONO # 1.4 (0.1-0.6); MONO % 11.7 % (1.0-6.0); PLATELET COUNT 242 10^3/uL (120.0-450.0); RED CELL DISTRIBUTION WIDTH 15.1 % (11.5-14.5)
[2016-09-18 07:19] LABS: ALB/GLOB RATIO 1.1 (1.1-1.8); ALKALINE PHOSPHATASE 68 U/L (38-133); ALT/SGPT 43 U/L (7-56); AST/SGOT 37 U/L (15-59); BILIRUBIN,TOTAL 0.5 mg/dL (0.2-1.3); BLOOD UREA NITROGEN 10 mg/dL (7-21); CARBON DIOXIDE 32 mmol/L (21-33); CHLORIDE 99 mmol/L (98-107); GFR AFRICAN-AMERICAN > 60; GLUCOSE,RANDOM 79 mg/dL (70-110); MAGNESIUM 2.1 mg/dL (1.7-2.2); PHOSPHOROUS 4.3 mg/dL (2.5-4.5); POTASSIUM 4.5 mmol/L (3.6-5.0); SODIUM 137 mmol/L (132-148)
[2016-09-18] MEDS: Lidocaine 5% Patch TD SCH (09:08)
[2016-09-18] MEDS: Azithromycin 250 MG in Sodium Chloride 0.9% 250 ML IVPB SCH (09:10)
[2016-09-18] MEDS: Albuterol-Ipratrop 3 mg / 0.5 (3 ml) UD IH PRN (10:05)
[2016-09-18] MEDS: POLYETHYLENE GLYCOL 3350 17 GM/Dose PACKET PO SCH (10:32)
--- NOTE | 2016-09-18 10:50 | CP.PCM.PN ---
Subjective - Date & Time of Evaluation Date of Evaluation: 09/18/16 Time of Evaluation: 09:15 - Subjective Subjective: Somewhat improved chest pain, no fevers, not in distress. Objective - Vital Signs/Intake and Output Vital Signs (last 24 hours): Temp Pulse Resp BP Pulse Ox 98.3 F 83 18 120/73 99 09/18/16 06:00 09/18/16 06:00 09/18/16 06:00 09/18/16 06:00 09/17/16 19:56 Intake and Output: 09/18/16 09/18/16 06:59 18:59 Intake Total 120 Balance 120 - Medications Medications: Current Medications Acetaminophen (Tylenol 325mg Tab) 650 mg PO Q6 PRN PRN Reason: Temp>100.4, aches Last Admin: 09/15/16 11:38 Dose: 650 mg Albuterol/Ipratropium (Duoneb 3 Mg/0.5 Mg (3 Ml) Ud) 3 ml IH Q2H PRN PRN Reason: Shortness of Breath Last Admin: 09/17/16 08:35 Dose: 3 ml Apixaban (Eliquis) 10 mg PO BID [facility] PRN Reason: Protocol Last Admin: 09/17/16 18:38 Dose: 10 mg Docusate Sodium (Colace) 100 mg PO TID [facility] Last Admin: 09/17/16 18:38 Dose: 100 mg Famotidine (Pepcid) 20 mg PO DAILY [facility] Last Admin: 09/17/16 10:02 Dose: 20 mg Azithromycin 250 mg/ Sodium (Chloride) 250 mls @ 167 mls/hr IVPB DAILY [facility] PRN Reason: Protocol Last Admin: 09/17/16 10:30 Dose: 167 mls/hr Ibuprofen (Motrin Tab) 400 mg PO Q6 PRN PRN Reason: Pain, moderate (4-7) Last Admin: 09/17/16 04:47 Dose: 400 mg Lidocaine (Lidoderm) 1 ea TD DAILY [facility] Last Admin: 09/17/16 10:01 Dose: 1 ea Methadone HCl (Methadone) 5 mg PO DAILY [facility] Last Admin: 09/17/16 10:16 Dose: 5 mg Methadone HCl (Methadone) 140 mg PO DAILY [facility] Last Admin: 09/17/16 10:01 Dose: 140 mg Nitroglycerin (Nitrostat Sl Tab) 0.4 mg SL Q5M PRN PRN Reason: chest pain Polyethylene Glycol (Miralax) 17 gm PO DAILY [facility] Last Admin: 09/17/16 10:21 Dose: Not Given - Labs Labs: 09/18/16 06:30 09/18/16 06:30 PT 12.0 Seconds (9.9-11.8) H 09/16/16 07:30 INR 1.11 (0.93-1.08) H 09/16/16 07:30 APTT 64.0 Seconds (23.7-30.8) H 09/16/16 07:30 - Constitutional Appears: Non-toxic, No Acute Distress - Head Exam Head Exam: NORMAL INSPECTION - ENT Exam ENT Exam: Mucous Membranes Moist - Neck Exam Neck Exam: absent: Lymphadenopathy, Meningismus - Respiratory Exam Respiratory Exam: Decreased Breath Sounds - Cardiovascular Exam Cardiovascular Exam: +S1, +S2 - GI/Abdominal Exam GI & Abdominal Exam: Soft. absent: Tenderness Assessment and Plan - Assessment and Plan (Free Text) Plan: Assessment Systemic Inflammatory Response Syndrome, consider due to acute pulmonary embolism - unlikely pneumonia recurrent venous thromboembolism HTN depression obesity with BMI 31 Plan blood cx negative, PCT only 0.17; reviewed CT chest - continue to monitor off antibiotics since he is at risk for infection patient is on anticoagulation will continue to monitor clinically
--- NOTE | 2016-09-18 12:38 | CP.PCM.PN ---
<Micah Peoples - Last Filed: 09/18/16 12:38> Subjective - Date & Time of Evaluation Date of Evaluation: 09/18/16 Time of Evaluation: 12:35 - Subjective Subjective: Medicine progress note. Attending: Dr. Paula Pt seen and examined at bedside. No acute distress. No events overnight. Pt did have BM. Pt needs PT eval, feeling much better overall. Objective - Vital Signs/Intake and Output Vital Signs (last 24 hours): Temp Pulse Resp BP Pulse Ox 98.3 F 83 18 120/73 99 09/18/16 06:00 09/18/16 06:00 09/18/16 06:00 09/18/16 06:00 09/17/16 19:56 Intake and Output: 09/18/16 09/18/16 06:59 18:59 Intake Total 120 Balance 120 - Medications Medications: Current Medications Acetaminophen (Tylenol 325mg Tab) 650 mg PO Q6 PRN PRN Reason: Temp>100.4, aches Last Admin: 09/15/16 11:38 Dose: 650 mg Albuterol/Ipratropium (Duoneb 3 Mg/0.5 Mg (3 Ml) Ud) 3 ml IH Q2H PRN PRN Reason: Shortness of Breath Last Admin: 09/18/16 10:05 Dose: 3 ml Apixaban (Eliquis) 10 mg PO BID [facility] PRN Reason: Protocol Last Admin: 09/18/16 09:08 Dose: 10 mg Docusate Sodium (Colace) 100 mg PO TID [facility] Last Admin: 09/18/16 09:08 Dose: 100 mg Famotidine (Pepcid) 20 mg PO DAILY [facility] Last Admin: 09/18/16 09:08 Dose: 20 mg Azithromycin 250 mg/ Sodium (Chloride) 250 mls @ 167 mls/hr IVPB DAILY [facility] PRN Reason: Protocol Last Admin: 09/18/16 09:10 Dose: 167 mls/hr Ibuprofen (Motrin Tab) 400 mg PO Q6 PRN PRN Reason: Pain, moderate (4-7) Last Admin: 09/17/16 04:47 Dose: 400 mg Lidocaine (Lidoderm) 1 ea TD DAILY [facility] Last Admin: 09/18/16 09:08 Dose: 1 ea Methadone HCl (Methadone) 5 mg PO DAILY [facility] Last Admin: 09/18/16 09:10 Dose: 5 mg Methadone HCl (Methadone) 140 mg PO DAILY [facility] Last Admin: 09/18/16 09:09 Dose: 140 mg Nitroglycerin (Nitrostat Sl Tab) 0.4 mg SL Q5M PRN PRN Reason: chest pain Polyethylene Glycol (Miralax) 17 gm PO DAILY [facility] Last Admin: 09/18/16 10:32 Dose: Not Given - Labs Labs: 09/18/16 06:30 09/18/16 06:30 PT 12.0 Seconds (9.9-11.8) H 09/16/16 07:30 INR 1.11 (0.93-1.08) H 09/16/16 07:30 APTT 64.0 Seconds (23.7-30.8) H 09/16/16 07:30 - Constitutional Appears: Non-toxic, No Acute Distress - Head Exam Head Exam: ATRAUMATIC, NORMAL INSPECTION, NORMOCEPHALIC - Eye Exam Eye Exam: EOMI - ENT Exam ENT Exam: Mucous Membranes Moist - Neck Exam Neck Exam: Full ROM, Normal Inspection - Respiratory Exam Respiratory Exam: NORMAL BREATHING PATTERN. absent: Respiratory Distress - Cardiovascular Exam Cardiovascular Exam: +S1, +S2 - GI/Abdominal Exam GI & Abdominal Exam: Soft, Normal Bowel Sounds. absent: Tenderness - Extremities Exam Extremities Exam: Full ROM, Normal Inspection - Back Exam Back Exam: NORMAL INSPECTION - Neurological Exam Neurological Exam: Alert, Awake, CN II-XII Intact, Oriented x3 - Psychiatric Exam Psychiatric exam: Normal Affect, Normal Mood - Skin Skin Exam: Dry, Intact, Normal Color, Warm Assessment and Plan - Assessment and Plan (Free Text) Assessment: This is a 56 yo male with past medical hx of PE, opioid abuse, htn, depression presenting with PE 1. Pulmonary embolism -continue tylenol for fevers -off of heparin drip, now on eliquis 10 mg po bid -Dr. Butcher consult. recs appreciated -hypercoag workup in progress -Dopplers show acute thrombus in right popliteal/tibial veins 2. Hx of HTN -continue to monitor 3. hx of opioid abuse -continue methadone 145 mg daily 4. Multifocal airspace disease, lower lobes -pt is afebrile this morning -tylenol for fevers -ibuprofen for pain -lidocaine patch for pain -ID consult. recs appreciated -urine shows trace protein, urine culture negative -azithromycin 250 mg daily, will f/u with ID regarding length of a abx -dc zosyn -ID consult. Dr. Jovel. recs appreciated. 5. Anemia -iron low, will need colonoscopy as outpt 6. GI/DVT ppx -pepcid daily -eliquis 10 bid -pt eval discussed with Dr. Paula <Flori Paula - Last Filed: 09/18/16 20:58> Objective - Vital Signs/Intake and Output Vital Signs (last 24 hours): Temp Pulse Resp BP Pulse Ox 98.2 F 81 20 129/87 92 L 09/18/16 16:15 09/18/16 16:15 09/18/16 16:15 09/18/16 16:15 09/18/16 16:15 - Medications Medications: Current Medications Acetaminophen (Tylenol 325mg Tab) 650 mg PO Q6 PRN PRN Reason: Temp>100.4, aches Last Admin: 09/15/16 11:38 Dose: 650 mg Albuterol/Ipratropium (Duoneb 3 Mg/0.5 Mg (3 Ml) Ud) 3 ml IH Q2H PRN PRN Reason: Shortness of Breath Last Admin: 09/18/16 10:05 Dose: 3 ml Apixaban (Eliquis) 10 mg PO BID [facility] PRN Reason: Protocol Last Admin: 09/18/16 18:40 Dose: 10 mg Docusate Sodium (Colace) 100 mg PO TID [facility] Last Admin: 09/18/16 09:08 Dose: 100 mg Famotidine (Pepcid) 20 mg PO DAILY [facility] Last Admin: 09/18/16 09:08 Dose: 20 mg Azithromycin 250 mg/ Sodium (Chloride) 250 mls @ 167 mls/hr IVPB DAILY [facility] PRN Reason: Protocol Last Admin: 09/18/16 09:10 Dose: 167 mls/hr Ibuprofen (Motrin Tab) 400 mg PO Q6 PRN PRN Reason: Pain, moderate (4-7) Last Admin: 09/17/16 04:47 Dose: 400 mg Lidocaine (Lidoderm) 1 ea TD DAILY [facility] Last Admin: 09/18/16 09:08 Dose: 1 ea Methadone HCl (Methadone) 5 mg PO DAILY [facility] Last Admin: 09/18/16 09:10 Dose: 5 mg Methadone HCl (Methadone) 140 mg PO DAILY [facility] Last Admin: 09/18/16 09:09 Dose: 140 mg Nitroglycerin (Nitrostat Sl Tab) 0.4 mg SL Q5M PRN PRN Reason: chest pain Polyethylene Glycol (Miralax) 17 gm PO DAILY [facility] Last Admin: 09/18/16 10:32 Dose: Not Given - Labs Labs: 09/18/16 06:30 09/18/16 06:30 PT 12.0 Seconds (9.9-11.8) H 09/16/16 07:30 INR 1.11 (0.93-1.08) H 09/16/16 07:30 APTT 64.0 Seconds (23.7-30.8) H 09/16/16 07:30 Attending/Attestation - Attestation I have personally seen and examined this patient.: Yes I have fully participated in the care of the patient.: Yes I have reviewed all pertinent clinical information, including history, physical exam and plan: Yes Notes (Text): 09/18/16 20:56 56 year old male with past medical history of PE, hypertension, and chronic opioid dependency on methadone who presented which pleuritic chest pain and shortness of breath. He was found to have DVT/PE and multifocal lung disease consistent with pneumonia. He is on eliquis for anticoagulation. He is on antibiotics as per ID. His chest wall pain improved after he was started on lidoderm patch. He is on methadone for chronic opiate use. He had relief of his constipation yesterday after receiving relistor. Overall his symptoms have improved although he still complains of dyspnea with exertion and weakness. PT evaluation was requested for d/c planning. Flori Paula MD Hospitalist.
[2016-09-19 07:58] LABS: ADD MANUAL DIFF? NO
[2016-09-19 08:02] LABS: BASO # 0.03 K/mm3 (0.0-2.0); BASO % 0.3 % (0.0-3.0); EOS # 0.7 (0.0-0.7); EOS % 6.2 % (1.5-5.0); GRAN # 5.86 (1.4-6.5); GRAN % 52.2 % (50.0-68.0); HEMATOCRIT 32.7 % (42.0-52.0); LYMPH # 3.4 (1.2-3.4); LYMPH % 30.5 % (22.0-35.0); MEAN CELL VOLUME 89.8 fL (80.0-105.0); MEAN CORPUSCULAR HEMOGLOBIN 28.6 pg (25.0-35.0); MEAN CORPUSCULAR HGB CONC 31.8 g/dl (31.0-37.0); MEAN PLATELET VOLUME 9.9 fl (7.0-11.0); MONO # 1.2 (0.1-0.6); MONO % 10.8 % (1.0-6.0); PLATELET COUNT 287 10^3/uL (120.0-450.0); RED CELL DISTRIBUTION WIDTH 14.9 % (11.5-14.5); WHITE BLOOD COUNT 11.2 10^3/ul (4.5-11.0)
[2016-09-19 08:17] LABS: ALB/GLOB RATIO 1.1 (1.1-1.8); ALKALINE PHOSPHATASE 68 U/L (38-133); ALT/SGPT 50 U/L (7-56); AST/SGOT 34 U/L (15-59); BILIRUBIN,TOTAL 0.5 mg/dL (0.2-1.3); BLOOD UREA NITROGEN 12 mg/dL (7-21); CARBON DIOXIDE 31 mmol/L (21-33); CHLORIDE 97 mmol/L (98-107); GFR AFRICAN-AMERICAN > 60; GLUCOSE,RANDOM 73 mg/dL (70-110); PHOSPHOROUS 4.4 mg/dL (2.5-4.5); POTASSIUM 4.4 mmol/L (3.6-5.0); SODIUM 136 mmol/L (132-148); TOTAL PROTEIN 7.2 g/dL (5.8-8.3)
[2016-09-19] MEDS: POLYETHYLENE GLYCOL 3350 17 GM/Dose PACKET PO SCH (09:04)
[2016-09-19] MEDS: Lidocaine 5% Patch TD SCH (09:05)
--- NOTE | 2016-09-19 18:45 | PN ---
DATE: 09/19/2016 The patient seen early this morning in room 561, bed 1. No fevers and chills. PHYSICAL EXAMINATION: VITAL SIGNS: Temperature is 98, blood pressure is 120/70 and respiratory rate of 20. HEENT: Unremarkable. NECK: Supple. LUNGS: Have decreased breath sounds. HEART: Normal S1, S2. ABDOMEN: Soft. LABORATORY EXAMINATION: Reveals a white count of 11,000, BUN of 12, creatinine of 0.8 and procalcito donn is 0.14 and 0.17. Review of the medications under orders reveals the patient to be off of antibiotics and blood culture s are negative. Dr. Paula's note is reviewed from yesterday. ASSESSMENT AND PLAN: This is a 56-year-old male who was seen earlier this morning, is still having s ignificant chest pain when he takes a deep respiratory breaths and with systemic inflammatory respons e syndrome secondary to acute pulmonary embolism, hypertension, depression and recurrent venous throm boembolism, currently off of antibiotics and afebrile. Chalino Reed MD cc: [phone] TT: 09/19/2016 18:45:11 Confirmation # [id number] Dictation # [id number]
[2016-09-20] MEDS: Lidocaine 5% Patch TD SCH (10:02)
[2016-09-20] MEDS: POLYETHYLENE GLYCOL 3350 17 GM/Dose PACKET PO SCH (10:03)
--- NOTE | 2016-09-20 18:02 | PN ---
DATE: 09/20/2016 The patient was seen earlier this morning in room 561. He states he is still having chest pain, alth ough it is somewhat improved. He appears to be much more comfortable. No fevers, no chills. PHYSICAL EXAMINATION: VITAL SIGNS: Temperature is 98, blood pressure is 120/80, respiratory rate of 18. HEENT: Unremarkable. NECK: Supple. LUNGS: Have decreased breath sounds. HEART: Normal S1, S2. ABDOMEN: Soft, nontender. LABORATORY DATA: Reveals the patient to have a white count of 11,200, hemoglobin of 10, platelets of 287. BUN of 12, creatinine of 0.8, procalcitonin 0.14 and then 0.17. A repeat one is noted. Micro biology reveals the blood cultures have been negative. Urine cultures have been negative. Nasal MRS A is no MRSA is detected. Review of the medications reveals the patient to be off of antibiotics. ASSESSMENT AND PLAN: This is a 56-year-old male who has systemic inflammatory response syndrome, acu te pulmonary embolization, hypertension, depression, recurrent venous thromboembolism, currently off of antibiotics, afebrile. He is at risk for developing nosocomial infections. Chalino Reed MD cc: [phone] TT: 09/20/2016 18:01:31 Confirmation # [id number] Dictation # [id number] mn
--- NOTE | 2016-09-21 00:09 | PN ---
DATE: 09/20/2016 SUBJECTIVE: The patient seems comfortable, although he does complain of some chest discomfort, mainl y on pressure. He has no other complaint. The patient was initially evaluated by hospital team and was planned to be discharged. However, getting medication is a big problem. He does not have any ne w complaints. He is taking all his meds. PHYSICAL EXAMINATION: VITAL SIGNS: Temperature 98.6, heart rate 83, blood pressure 124/84, respiration 19, saturation 97% on room air. HEAD AND NECK: Normal. No JVD, no thyromegaly. CHEST: Clear, good entry. CARDIAC: First sound, second sound normal. ABDOMEN: Soft, obese, nontender. EXTREMITIES: Mild edema. NEUROLOGIC: Normal. LABORATORY DATA: No labs for today. IMPRESSION: 1. Acute recurrent pulmonary embolism, deep venous thrombosis. Continue Eliquis b.i.d. 2. History of abdominal aortic aneurysm. We will refer the patient to the buckle strap puncher. Will resum e his metoprolol 25 b.i.d. 3. Morbid obesity. 4. Hypertension. 5. Aortic arch aneurysm. Continue current therapy. Will get a pulmonary consult, Dr. Crespo, to se e the patient. Have pulmonary function test in the morning. Continue nebulizer treatment. Will dis charge probably in the morning. He is stable. Yohan Romero MD cc: [phone] TT: 09/21/2016 00:09:16 Confirmation # [id number] Dictation # [id number] dn
[2016-09-21 07:19] VITALS: BP 121/78; PULSE 77; RESP 20; TEMP 98.5; O2SAT 94
--- NOTE | 2016-09-21 08:29 | PN ---
DATE: 09/18/2016 REASON FOR CONSULTATION AND FOLLOWUP: Acute PE, cardiac evaluation. BRIEF CLINICAL HISTORY: A 56-year-old male with past medical history significant for alcohol abuse, history of methadone program, admitted with patient is not taking Coumadin for 2 weeks prior to comin g here, subtherapeutic INR. PHYSICAL EXAMINATION as follows: VITAL SIGNS: Temperature afebrile, heart rate 81, blood pressure 129/87. HEENT: PERRLA. Extraocular muscles intact. NECK: Supple. No carotid ____ thyromegaly. CHEST: Clear to auscultation. HEART: S1, S2 regular. ABDOMEN: Soft. EXTREMITIES: Clubbing, cyanosis negative. LABORATORY DATA: Blood workup as follows: WBC 12, hemoglobin 10.____, hematocrit 31.3, platelet cou nt 242. Chemistry shows sodium 137, potassium 4.5, chloride 99, carbon dioxide 32, anion gap of 11, BUN 19, creatinine 0.9. IMPRESSION: Acute PE, noncompliance with medication, off Coumadin before coming here and also with s ubtherapeutic INR. The patient was on heparin initially, now patient is on Eliquis. Yesterday, echo revealed ventricle size is normal, normal left ventricular size and function, diastolic dysfunction, mild aortic regurgitation, right ventricular systolic pressure 27. The patient is currently on Eliquis 10 mg b.i.d. for 1 week and then 5 mg daily regimen, but ____ pat ient may have to switch on back to the Coumadin. We will discontinue telemetry unit. Thank you for ____ for providing the opportunity in taking care of the patient. Electrolytes within normal forte its. Ángel Almonte MD cc: [phone] TT: 09/18/2016 19:15:00 Confirmation # [id number] Dictation # [id number] santiago
--- NOTE | 2016-09-21 09:02 | PN ---
DATE: 09/19/2016 A 56-year-old male who came in to the hospital with diagnosis of pulmonary embolism, currently on Berkley jessica. Cannot get Eliquis from this weekend. The patient also currently on methadone for his chronic methadone, gets it from . He has no chest pain at this time. Seems comfortable. PHYSICAL EXAMINATION: VITAL SIGNS: Temperature 98.7, heart rate 82, blood pressure 127/80, respirations 20, saturation 98% on room air. HEAD AND NECK: Normal. No JVD, no thyromegaly. CHEST: Clear, good entry. CARDIAC: First sound, second sound normal. ABDOMEN: Soft, obese, nontender. EXTREMITIES: Mild edema. NEUROLOGIC: Normal. LABORATORY DATA: White count 11.2, hemoglobin 10.4, hematocrit 32.7, platelets 287. Chemistry: Sod ium 136, potassium 4.4, chloride 97, bicarb 31, BUN 12, creatinine 0.8. Liver function test is elizabeth l. IMPRESSION AND PLAN: 1. Acute recurrent pulmonary embolism. Continue Eliquis 10 mg b.i.d. and will follow up clinically. Will try to get authorization for his medicines. Already got it. Cannot get it. The pharmacy [facility]. 2. The patient also does have a history of chronic addiction problem, on methadone. 2. He has also history of abdominal aortic aneurysm. Seen by cardiology, , as outpatient. He should follow up with this. 3. Chronic obstructive pulmonary disease. Continue DuoNeb. PLAN: Continue current therapy. Follow up clinically. The patient had blood cultures negative x 2. Continue current treatment for now. Yohan Romero MD cc: [id number] TT: 09/21/2016 00:04:20 Confirmation # [id number] Dictation # [id number]
[2016-09-21] MEDS: Lidocaine 5% Patch TD SCH (11:29)
[2016-09-21] MEDS: POLYETHYLENE GLYCOL 3350 17 GM/Dose PACKET PO SCH (11:30)
--- NOTE | 2016-09-21 15:49 | CP.PCM.PN ---
Subjective - Date & Time of Evaluation Date of Evaluation: 09/21/16 Time of Evaluation: 09:45 - Subjective Subjective: Comfortable, breathing better, no chest pain, no fevers overnight. Objective - Vital Signs/Intake and Output Vital Signs (last 24 hours): Temp Pulse Resp BP Pulse Ox 98.5 F 77 20 121/78 94 L 09/21/16 07:18 09/21/16 08:19 09/21/16 07:18 09/21/16 08:19 09/21/16 07:18 - Labs Labs: 09/19/16 07:54 09/19/16 07:54 PT 12.0 Seconds (9.9-11.8) H 09/16/16 07:30 INR 1.11 (0.93-1.08) H 09/16/16 07:30 APTT 41.7 Seconds (23.7-30.8) H 09/21/16 06:20 - Constitutional Appears: Non-toxic, No Acute Distress - Head Exam Head Exam: NORMAL INSPECTION - ENT Exam ENT Exam: Mucous Membranes Moist - Neck Exam Neck Exam: absent: Lymphadenopathy, Meningismus - Respiratory Exam Respiratory Exam: Decreased Breath Sounds - Cardiovascular Exam Cardiovascular Exam: +S1, +S2 - GI/Abdominal Exam GI & Abdominal Exam: Soft. absent: Tenderness Assessment and Plan - Assessment and Plan (Free Text) Plan: Assessment Systemic Inflammatory Response Syndrome, consider due to acute pulmonary embolism - no evidence of pneumonia recurrent venous thromboembolism HTN depression obesity with BMI 31 Plan blood cx negative, PCT only 0.17; reviewed CT chest - continue to monitor off antibiotics while the patient is in the hospital since he is at risk for infection patient is on anticoagulation and should be follow up by PMD as an outpatient
--- NOTE | 2016-09-22 09:55 | PN ---
DATE: 09/21/2016 PULMONARY PROGRESS NOTE REFERRING PHYSICIAN: Yohan Romero MD. HISTORY OF PRESENT ILLNESS: This is a 56-year-old gentleman with past medical history significant fo r aortic aneurysm, history of alcohol abuse, methadone-dependent, history of pulmonary embolism, ____ on anticoagulation, presented with shortness of breath, abdominal pain. In the Emergency Room, had a CT angio which shows acute pulmonary embolism, also pulmonary infiltrate s. Started on anticoagulation today. Lying in the bed, feels better. Admits to loud snoring, dayti me sleepy and tired. No hemoptysis, no hematemesis. PAST MEDICAL HISTORY: Alcohol abuse, history of pulmonary embolism, history of aortic aneurysm. ALLERGIES: None known. FAMILY HISTORY: Positive for lung cancer. SOCIAL HISTORY: Positive history of alcohol abuse and on methadone, also history of substance abuse. MEDICATIONS: The patient is on Colace 100 mg 3 times a day, DuoNeb q. 2 hours p.r.n., Eliquis 10 mg twice a day, Lidoderm patch at affected area, metoprolol tartrate 25 mg twice a day, metoprolol ____, methadone 140 mg daily, MiraLax 17 grams daily, Pepcid 20 mg daily, Tylenol p.r.n. basis. REVIEW OF SYSTEMS: No headache, no rhinitis. Sleepy and tired. Admits to some ____ snoring, daytim e sleepy and tired. No nausea, no vomiting, no diarrhea. No leg pain or leg swelling. PHYSICAL EXAMINATION: GENERAL: Lying in the bed in no acute distress. VITAL SIGNS: Temp is 98, heart rate is 77. Respiratory rate is 20, blood pressure 121/78, pulse ox 94% on room air. HEENT: Moist mucous membranes. Crowded airway. Mallampati score is 4. NECK: Supple. No JVD. LUNGS: Have fair airflow with ____ rhonchi. HEART: S1, S2. ABDOMEN: Soft, nontender. No organomegaly. EXTREMITIES: No edema. NEUROLOGIC: Awake, alert, follows simple commands. LABORATORY DATA: Shows hemoglobin 10.4, hematocrit 32.7, WBC 11.2. Platelets are 287. INR 1.11. P TT is 42. Sodium 136, potassium 4.4, chloride 97, bicarbonate 31, BUN 12, creatinine 0.8. Calcium i s 9.0, phosphorus 4.4, magnesium 2.0. AST 34, ALT 50. Alk phos is 68. Albumin is 3.8. Drug screen was positive for methadone. Microbiology: Blood cultures have been negative. CAT scan of the chest done on admission shows pulmonary embolism in the right distal main pulmonary a rtery, right upper lobe artery, middle and lower lobe segments and subsegmental branches, multifocal airspace disease in both lung k[place] with maybe atelectasis versus infiltrate. IMPRESSION AND PLAN: Recurrent pulmonary embolus, deep venous thrombosis, history of aortic aneurysm , history of substance abuse, methadone-dependent, may have sleep apnea syndrome, morbid obesity, hyp ertension. I agree with Dr. Romero with the present management. The patient can be discharged home on Eliquis. Will need attended sleep study to rule out sleep apnea syndrome and also methadone-dependent, sleep disorder, also need PFT as outpatient. Fall precautions. Ángel Crespo MD cc: [id number] TT: 09/22/2016 09:41:26 Confirmation # [id number] Dictation # [id number]
--- NOTE | 2016-09-24 10:24 | DS ---
The patient is stable. He has no chest pain. He feels better and currently on Eliquis ____ mg b.i.d . on day of discharge. The patient is on methadone. He is comfortable, ready for discharge. He is hemodynamically stable. DISCHARGE PHYSICAL EXAMINATION: VITAL SIGNS: Temperature is 98.5, heart rate 77, blood pressure 121/78, respiratory rate 20, saturat ion 94-95% on room air. HEAD AND NECK: Normal. CHEST: Clear. CARDIAC: First sound, second sound normal. ABDOMEN: Soft, obese, nontender. EXTREMITIES: Leg edema, right more than left. NEUROLOGICAL: Normal. The patient, in the hospital, was given IV heparin. Compliance with Coumadin was a big issue for him with his PE and DVT. The patient is seen by different specialists. Dr. Crespo saw the patient. He will get sleep study as outpatient. Continue his methadone. Needs pulmonary function test also as outpatient. Fall precautions have been explained to the patient, also advised to see the cardiology for his aortic aneurysm. The patient currently has no fever, no cough. He does have systemic inflam matory syndrome without any evidence of any infections. It seems stable. We will discharge the sandra ent home. DISCHARGE DIAGNOSES: 1. Recurrent pulmonary embolism, deep venous thrombosis. Continue Eliquis ____ mg b.i.d. Prescript ion. The patient ____ now. 2. Hypertension. 3. Probably obstructive sleep apnea. The patient advised to do sleep study. Depression, chronic ad diction, on methadone; hypertension, obesity, knee arthritis. Continue current medications, continue methadone. Continue metoprolol 25 b.i.d. Continue inhaled bronchodilators, Eliquis ____ mg b.i.d. Yohan Romero MD cc: [phone] TT: 09/24/2016 09:32:21 nj
== END 2016-09-21 15:19 | disposition home or self-care (01) | DRG 541 ==
LOC: ED 01:27 → ERH 04:41 → CCU 08:19 → 2RSO 16:24 → 5RNO 09-18 11:39
PROVIDERS: ADMIT Internal Medicine; ATTEND Internal Medicine
PROC: 3E0F7GC Introduction of Other Therapeutic Substance into Respiratory Tract, Via Natural or Artificial Opening (ICD-10-PCS; principal; 2016-09-15)
DX: I26.99 Other pulmonary embolism without acute cor pulmonale (principal); I82.431 Acute embolism and thrombosis of right popliteal vein; I82.441 Acute embolism and thrombosis of right tibial vein; I27.2 Other secondary pulmonary hypertension; I71.2 Thoracic aortic aneurysm, without rupture; F11.10 Opioid abuse, uncomplicated; J44.9 Chronic obstructive pulmonary disease, unspecified; I35.1 Nonrheumatic aortic (valve) insufficiency; I10 Essential (primary) hypertension; I71.4 Abdominal aortic aneurysm, without rupture; F10.10 Alcohol abuse, uncomplicated; F32.9 Major depressive disorder, single episode, unspecified; D64.9 Anemia, unspecified; K59.00 Constipation, unspecified; H91.91 Unspecified hearing loss, right ear; Z86.711 Personal history of pulmonary embolism; E66.01 Morbid (severe) obesity due to excess calories; Z68.31 Body mass index [BMI] 31.0-31.9, adult; Z79.891 Long term (current) use of opiate analgesic; Z79.01 Long term (current) use of anticoagulants; Z91.14 Patient's other noncompliance with medication regimen; Z87.891 Personal history of nicotine dependence; Z80.1 Family history of malignant neoplasm of trachea, bronchus and lung